=== PATIENT | female | born 1955 | race Two or more races ===

== ENCOUNTER 2022-12-16 10:09 | Outpatient (OUT) | payer OTHER, SELFPAY ==
[2022-12-16 12:13] LABS: Anion Gap 11.2; BUN Creatinine Ratio 15.5; Calcium 8.9 mg/dL (8.5-10.1); Carbon Dioxide 29.7 mmol/L (21.0-32.0); Chloride 106 mmol/L (98-107); Estimated GFR (African America >60 (>=60); Estimated GFR (Non-African Ame >60 (>=60); Glucose 104 mg/dL (74-106); Potassium 3.9 mmol/L (3.5-5.1); Sodium 143 mmol/L (136-145)
== END 2022-12-16 10:10 | disposition home or self-care (01) ==
LOC: LAB 12-20 12:40
PROVIDERS: PCP Nurse Practitioner; Visit Provider Nurse Practitioner
DX: M81.0 Age-related osteoporosis without current pathological fracture (principal)
CPT/HCPCS: 36415; 80048

== ENCOUNTER 2022-12-21 07:34 | Outpatient (OUT) | payer OTHER, SELFPAY ==
[2022-12-21] MEDS: ZOLEDRONIC ACID/MANNITOL-WATER 5 MG/100 ML BOTTLE 300 MG IV (10:03)
== END 2022-12-21 07:35 | disposition home or self-care (01) ==
LOC: INF 07:34
PROVIDERS: PCP Nurse Practitioner; Visit Provider Nurse Practitioner
DX: M81.0 Age-related osteoporosis without current pathological fracture (principal)
CPT/HCPCS: 96365; J3489

== ENCOUNTER 2023-12-13 07:24 | Outpatient (RCR) | payer OTHER, SELFPAY ==
[2023-12-13 09:35] VITALS: BP 144/79; PULSE 75; TEMP 36.8; O2SAT 95
[2023-12-13] MEDS: ZOLEDRONIC ACID/MANNITOL-WATER 5 MG/100 ML BOTTLE 400 MG IV (09:42)
[2023-12-13 09:58] LABS: Anion Gap 11.7; Calcium 8.4 mg/dL (8.5-10.1); Carbon Dioxide 27.3 mmol/L (21.0-32.0); Chloride 108 mmol/L (98-107); Estimated GFR (African America >60 (>=60); Estimated GFR (Non-African Ame >60 (>=60); Glucose 97 mg/dL (74-106); Sodium 143 mmol/L (136-145)
--- NOTE | 2023-12-13 10:04 | PC.NURSE ---
0935: Pt. to [facility] amb. for Reclast infusion. Seated in recliner. VSS. IV initiated to left forearm, see documentation. Pt. tolerated well. IV Reclast initiated at this time. 1001: Reclast completed at this time without s&s of adverse reaction. IV d/c'd, pressure to site. D/c'd amb. to home.
== END 2023-12-24 23:59 | disposition home or self-care (01) ==
LOC: LAB 07:24
PROVIDERS: PCP Nurse Practitioner; Visit Provider Nurse Practitioner
DX: M81.0 Age-related osteoporosis without current pathological fracture (principal)
CPT/HCPCS: 36415; 80048; 96365; J3489

== ENCOUNTER 2024-04-18 11:36 | Outpatient (OUT) | payer OTHER, SELFPAY ==
--- OUTSIDE RECORDS SUMMARY | 2024-04-18 11:41 | XMS_ITS | CCD ---
Author Organization [facility] Care Team Providers Care Tear Down Man Name Role Phone Faustina Willis Unavailable SHAIKH Noa ONEAL Admitting Unavailable SHAIKH Noa ONEAL Attending Unavailable LOLY, DR LUX Primary Care Unavailable LOLY, DR LUX Admitting Unavailable HOUSE, DR LUX Attending Unavailable HOUSE, DR LUX Primary Care Unavailable HOUSE, DR LUX Consulting Unavailable AICHHOLZ, FURNACE OPERATOR AND TENDER MELONY Admitting Unavailable AICHHOLZ, FURNACE OPERATOR AND TENDER MELONY Attending Unavailable AICHHOLUziel, FURNACE OPERATOR AND TENDER MELONY Primary Care Unavailable AICHHOLZ, FURNACE OPERATOR AND TENDER MELONY Consulting Unavailable Janay Elizalde Unavailable DAKSHA Elizalde Attending Provider MD Hill Foreman Attending Provider Hill Foreman Attending Unavailable Hill Foreman Admitting Unavailable Janay Elizalde Attending Unavailable Janay Elizalde Admitting Unavailable Aichholuziel CROOKS-Melony WARE Primary Care Provider CHRISTIANO QUINTANA Attending Unavailable AICHHOLZ, MELONY J Referring Unavailable AICHHOLZ, MELONY J Primary Care Unavailable CHRISTIANO QUINTANA Attending Unavailable CHRISTIANO QUINTANA Referring Unavailable AICHHOLZ, MELONY J Primary Care Unavailable JUVENTINOHOCHRISTIANO ACEVES Referring Unavailable AICHHOLZ, MELONY J Primary Care Unavailable JUVENTINOHOYOLA, CHRISTIANO N Referring Unavailable AICHHOLZ, MELONY J Primary Care Unavailable VERHOFFCHRISTAINO N Attending Unavailable AICHHOLZ, MELONY J Referring Unavailable AICHHOLZ, MELONY J Primary Care Unavailable AICHHOLZ, MELONY J Referring Unavailable AICHHOLZ, MELONY J Primary Care Unavailable AICHHOLZ, MELONY J Referring Unavailable AICHHOLZ, MELONY J Primary Care Unavailable CHRISTIANO QUINTANA Attending Unavailable JOENoaALISSA, MELONY J Referring Unavailable KATIA, MELONY J Primary Care Unavailable CHRISTIANO QUINTANA Attending Unavailable CHRISTIANO QUINTANA Referring Unavailable AICNoaALISSA, MELONY J Primary Care Unavailable AICNoaHOLUziel, MELONY J Referring Unavailable AICNoaHOLUziel, MELONY J Primary Care Unavailable AICHHOLZ, MELONY Attending Unavailable AICHHOLZ, MELONY Attending Unavailable AICHHOLZ, MELONY Attending Unavailable AICHHOLZ, MELONY Attending Unavailable AICHHOLZ, MELONY Attending Unavailable SABRA VALADEZ Attending Unavailable Luly HUYNH, Jovanny Unavailable Jovanny Mauricio MD Primary Care Provider [phone] Katia RETAIL SHIFT MANAGER, Melony Unavailable Allergies Allergy Classification Reported Allergen(s) Allergy Type Date of Onset Reaction(s) Facility (2 sources) Penicillin G Benzathine Drug allergy rash [place] [employer] Other (4 sources) Penicillins; Translations: [PENICILLINS] Propensity to adverse reactions to drug 7 [facility] (4 sources) Penicillins Propensity to adverse reactions 4 [facility] Medications Current Medications Medication Drug Class(es) Dates Sig (Normalized) Sig (Original) acetaminophen 325 mg oral tablet (5 sources) take 2 tablets by mouth every six hours as needed for pain acetaminophen (TYLENOL) 325 mg tablet Take 2 tablets (650 mg total) by mouth every 6 (six) hours as needed for pain. 0 Active take 2 tablets by mouth every fo ur hours Tylenol 325 MG 2 tablet as needed Orally every 4 hrs Active take 1 tablet by mouth every fou r hours Tylenol 325 MG 1 tablet as needed Orally every 4 hrs Active calcium carbonate 1250 mg / cholecalciferol 125 unt oral tablet (7 sources) Vitamin D take 1 tablet by mouth in the morning Calcium Carb-Cholecalciferol 500-10 MG-MCG tablet Take 1 tablet by mouth in the morning and 1 tablet in the evening. Active take 1 tablet by mouth in the mo rning calcium carbonate-vitamin D3 500 mg-10 mcg (400 unit) tablet Take 1 tablet by mouth in the morning and 1 tablet before bedtime. 0 Active cetirizine hydrochloride 10 mg oral tablet (4 sources) Histamine-1 Receptor Antagonist Start: 02-29-2024 take 1 tablet by mouth once daily cetirizine (ZyrTEC) 10 MG tablet Indications: Contact dermatitis due to plant Take 1 tablet (10 mg) by mouth Daily for 15 days 15 tablet 02/29/2024 Active diclofenac sodium 0.01 mg/mg topical gel (2 sources) Nonsteroidal Anti-inflammator y Drug Voltaren 1 % Externally Active hydroCHLOROthiazide (1 source) Thiazide Diuretic hydroCHLOROthiazide Active meloxicam 15 mg oral tablet (5 sources) Nonsteroidal Anti-inflammator y Drug take 1 tablet by mouth once daily meloxicam (Mobic) 15 MG tablet Take 15 mg by mouth Daily Active take 1 tablet by ida th every twenty-four hours Meloxicam 7.5 MG 1 tablet Orally Once a day Not-Taking NON FORMULARY (3 sources) take 1 dose by mouth once daily in the morning NON FORMULARY Take 1 each by mouth in the morning. Med Name: Cartigen 500 mg daily . 0 Active [place] 3-6-9 Complex - (1 source) [place] 3-6-9 Comp eileen - as directed Orally Active omeprazole 40 mg delayed release oral capsule (7 sources) Proton Pump Inhibitor Start: 11-28-19 24 take 1 capsule by mouth before mealtime omeprazole (PriLOSEC) [address] capsule Indications: Gastroesophageal reflux disease without esophagitis Take 1 capsule (40 mg) by mouth in the morning. Take before meals. Do not crush or chew.. 90 capsule 1 11/28/2023 Active Start: 05-06-2021 take 1 capsule by mo ut once daily omeprazole (PriLOSEC) 40 mg capsule Take 1 capsule (40 mg total) by mouth daily. 30 capsule 1 05/06/2021 Active pregabalin 50 mg oral capsule (2 sources) Start: 08-30-2023 take 1 capsule by mouth in the morning, then take 1 capsule by mouth at bedtime pregabalin (LYRICA) 50 mg capsule Indications: Lumbar spondylosis , Spinal stenosis of lumbar region with neurogenic claudication Take 1 capsule (50 mg total) by mouth in the morning and 1 capsule (50 mg total) before bedtime. 60 capsule 1 08/30/2023 Active tiZANidine 4 mg oral tablet (3 sources) Central alpha-2 Adrenergic Agonist Start: 06-28-2023 take 1 tablet by mouth once daily as needed for muscle spasms ZANAFLEX 4 mg tablet Take 1 tablet (4 mg total) by mouth daily as needed for muscle spasms. 0 06/28/2023 Active 100 ml zoledronic acid 0.05 mg/ml injection (4 sources) Bisphosphonate zoledronic acid (Reclast) 5 MG/100ML solution Infuse 5 mg into a venous catheter 1 (one) time Once a year Active Completed/Discontinued Medications Medication Drug Class(es) Dates Sig (Normalized) Sig (Original) gabapentin 300 mg oral capsule (1 source) Anti-epileptic Agent Start: 05-10-2018 take 1 capsule by mouth every eight hours Gabapentin 300 MG 1 capsule Orally Three times a day for 30 day(s) Apr, Not-Taking methylPREDNISolone 4 mg oral tablet (1 source) Corticosteroid Start: 05-01-2018 Medrol 4 MG as directed Orally Apr, Not-Taking traMADol hydrochloride 50 mg oral tablet (2 sources) Opioid Agonist Start: 05-10-2018 take 1 tablet by mouth twice daily as needed traMADol HCl 50 MG 1 tablet as needed Orally up to two times daily as needed for 30 days Apr, Not-Taking Start: 05-01-2018 take 1 tablet by ida th every six hours traMADol HCl 50 MG 1 tablet as needed Orally every 6 hrs Apr, Not-Taking Problems Active Problems Problem Classification Problem Date Documented Date Episodic/Chronic Allergic reactions (4 sources) Contact dermatitis due to plants; Translations: [Unspecified contact dermatitis due to plants, except food] Onset: 02-29-2024 02-29-2024 Episodic Cataract (10 sources) Nuclear sclerotic cataract; Translations: [Age-related nuclear cataract, left eye] Onset: 06-11-2017 Resolved: 07-09-2017 07-09-2017 Chronic Deficiency and other anemia (1 source) Iron deficiency anemia, unspecified; Translations: [Iron deficiency anemia, unspecified] Onset: 10-11-2023 Episodic Disorders of lipid metabolism (6 sources) Hyperlipidemia, unspecified; Translations: [Mixed hyperlipidemia] Onset: 09-28-2023 09-28-2023 Chronic Esophageal disorders (5 sources) Gastro-esophageal reflux disease without esophagitis; Translations: [Gastroesophageal reflux disease without esophagitis] Onset: 09-28-2023 09-28-2023 Chronic Essential hypertension (5 sources) Essential (primary) hypertension; Translations: [Benign essential hypertension] Onset: 09-28-2023 09-28-2023 Chronic Headache; including migraine (1 source) Headache; including migraine; Translations: [HEADACHE UNSPECIFIED] Onset: 03-27-2021 Osteoarthritis (5 sources) Primary osteoarthritis, right hand; Translations: [Osteoarthritis of joint of right hand] Onset: 10-04-2023 11-28-2023 Chronic Osteoporosis (5 sources) Age-related osteoporosis without current pathological fracture; Translations: [Postmenopausal osteoporosis] Onset: 09-28-2023 11-28-2023 Chronic Other aftercare (4 sources) Other detention (current) drug therapy; Translations: [OTH VISITOR SERVICES ASSOCIATE CURRENT DRUG THERAPY] Onset: 01-14-2022 Episodic Other aftercare (2 sources) H/O: high risk medication; Translations: [Other detention (current) drug therapy] 04-04-2024 Episodic Other connective tissue disease (1 source) Hand pain Onset: 10-04-2023 Episodic Other connective tissue disease (1 source) Pain in right finger(s); Translations: [Pain in right finger(s)] Onset: 08-30-2023 Episodic Other injuries and conditions due to external causes (1 source) Injury, unspecified, initial encounter Episodic Other nervous system disorders (2 sources) Chronic pain; Translations: [Other chronic pain] Chronic Other nervous system disorders (4 sources) Difficulty walking; Translations: [Difficulty in walking, not elsewhere classified] Onset: 09-28-2023 09-28-2023 Chronic Other non-traumatic joint disorders (4 sources) Derangement of right shoulder joint; Translations: [Other specific joint derangements of right shoulder, not elsewhere classified] Onset: 09-28-2023 09-28-2023 Chronic Other nutritional; endocrine; and metabolic disorders (4 sources) Obese class I; Translations: [Obesity (BMI 30.0-34.9)] Onset: 06-28-2023 06-28-2023 Chronic Peripheral and visceral atherosclerosis (4 sources) Atherosclerosis of aorta; Translations: [Atherosclerosis of aorta] Onset: 02-29-2024 02-29-2024 Chronic Residual codes; unclassified (2 sources) Amnesia; Translations: [Other amnesia] 04-04-2024 Episodic Residual codes; unclassified (4 sources) Memory impairment; Translations: [Other amnesia] Onset: 02-29-2024 02-29-2024 Episodic Spondylosis; intervertebral disc disorders; other back problems (20 sources) Lumbosacral spondylosis without myelopathy; Translations: [Spondylosis without myelopathy or radiculopathy, lumbosacral region] Onset: 07-19-2023 07-19-2023 Chronic Spondylosis; intervertebral disc disorders; other back problems (20 sources) Peripheral neuritis; Translations: [Radiculopathy, lumbar region] Onset: 06-28-2023 07-19-2023 Episodic Superficial injury; contusion (1 source) Contusion of left knee, initial encounter Episodic Unclassified (1 source) Pain in right hand; Translations: [Pain in right hand] Onset: 12-13-2022 Unclassified (1 source) Contusion of left knee, initial encounter; Translations: [Contusion of left knee, initial encounter] Onset: 10-23-2022 Unclassified (1 source) Low back pain, unspecified; Translations: [Low back pain, unspecified] Onset: 06-29-2023 Past or Other Problems Problem Classification Problem Date Documented Da te Episodic/Chronic Deficiency and other anemia (4 sources) Iron deficiency anemia; Translations: [Iron deficiency anemia, unspecified] Onset: 09-28-2023 09-28-2023 Episodic Gastritis and duodenitis (4 sources) Gastritis, unspecified, without bleeding; Translations: [GASTRITIS UNS WITHOUT BLEEDING] Onset: 03-11-2021 Episodic Headache; including migraine (4 sources) Headache disorder; Translations: [Other headache syndrome] Onset: 06-28-2023 06-28-2023 Episodic Malaise and fatigue (1 source) Other fatigue Onset: 12-09-2021 Resolved: 12-09-2021 Episodic Mood disorders (4 sources) Mood disorders Onset: 11-28-2023 11-28-2023 Mycoses (4 sources) Candidal intertrigo; Translations: [Candidiasis of skin and nail] Onset: 09-28-2023 09-28-2023 Episodic Nausea and vomiting (1 source) Nausea; Translations: [NAUSEA] Onset: 03-27-2021 Episodic Nutritional deficiencies (5 sources) Deficiency of other specified B group vitamins; Translations: [Vitamin B12 deficiency (non anemic)] Onset: 09-28-2023 09-28-2023 Episodic Other circulatory disease (4 sources) Elevated blood pressure; Translations: [Elevated blood-pressure reading, without diagnosis of hypertension] Onset: 06-28-2023 Resolved: 09-28-2023 09-28-2023 Episodic Other connective tissue disease (8 sources) Pain in finger; Translations: [Pain in right finger(s)] Onset: 08-30-2023 08-30-2023 Episodic Other connective tissue disease (4 sources) Nontraumatic complete rupture of rotator cuff of right shoulder; Translations: [Complete rotator cuff tear or rupture of right shoulder, not specified as traumatic] Onset: 09-28-2023 09-28-2023 Episodic Other ear and sense organ disorders (4 sources) Otalgia, right ear; Translations: [Otalgia, unspecified] Onset: 09-28-2023 09-28-2023 Episodic Other screening for suspected conditions (not mental disorders or infectious disease) (5 sources) Encounter for screening mammogram for malignant neoplasm of breast; Translations: [Patient encounter status] Onset: 09-28-2023 09-28-2023 Episodic Residual codes; unclassified (4 sources) Edema of lower extremity; Translations: [Localized edema] Onset: 09-28-2023 09-28-2023 Episodic Residual codes; unclassified (4 sources) Family history of breast cancer; Translations: [Family history of malignant neoplasm of breast] Onset: 11-28-2023 11-28-2023 Episodic Results Test Name Value Interpretation Reference Range Facility MAMM SCREENING BILATERAL W C biomedical engineering director 10-16-2023 MAMM SCREENING BILATERAL W CAD MAMM SCREENING BILATERAL W CAD EXAM: MAMM SCREENING BILATERAL W CAD, 10/16/2023 11:13 AM CLINICAL INDICATIONS: Screening, Visit for screening mammogram COMPARISON: 10/12/2022 and priors TECHNIQUE: Bilateral digital tomosynthesis MLO and CC views of the breasts were obtained, with creation of synthetic 2D views. Computer aided detection was utilized. FINDINGS: The breasts are heterogeneously dense, which may obscure small masses. There are no suspicious masses, calcifications, or areas of architectural distortions. IMPRESSION: No mammographic evidence of malignancy. BI-RADS: BI-RADS 1 - Negative Recommendation: Routine screening mammogram in 1 year. Finalized by Catracho Mccollum MD on 10/16/2023 12:38 PM 1 c MAMM 1 YR Normal [facility] COMPREHENSIVE METABOLIC PANE Jeffry 10-11-2023 Albumin [Mass/Vol] 4.1 g/dL Normal 3.2-5.3 [facility] Comment on above: Performed By: #### 2 498-4, CMP, 2276-4, 54100-2, 2132-9, 95242-0 #### [facility] ([id number]) [address], [address] [place] [address] ALP [Catalytic activity/Vol] 53 U/L Normal 39-130 [facility] Comment on above: Performed By: #### 2 498-4, CMP, 2276-4, 55484-4, 2-9, 56633-8 #### [facility] ([id number]) [address], [address] [place] [address] ALT [Catalytic activity/Vol] 14 U/L Normal 0-31 [facility] Comment on above: Performed By: #### 2 498-4, CMP, 2276-4, 82809-7, 2132-9, 58794-4 #### [facility] ([id number]) [address], [address] [place] [address] Anion gap [Moles/Vol] 5 mmol/L Normal 5-15 [facility] Comment on above: Performed By: #### 2 498-4, CMP, 2276-4, 27233-8, 2132-9, 75939-7 #### [facility] ([id number]) [address], [address] [place] [address] AST [Catalytic activity/Vol] 16 U/L Normal 0-41 [facility] Comment on above: Performed By: #### 2 498-4, CMP, 2276-4, 75566-9, 2132-9, 06339-9 #### [facility] ([id number]) [address], [address] [place] [address] Bilirubin [Mass/Vol] 0.4 mg/dL Normal 0.3-1.2 [facility] Comment on above: Performed By: #### 2 498-4, CMP, 2276-4, 04171-2, 9, 44799-8 #### [facility] ([id number]) [address], [address] [place] [address] Calcium [Mass/Vol] 8.8 mg/dL Normal 8.5-10.5 [facility] Comment on above: Performed By: #### 2 498-4, CMP, 2276-4, 51664-6, 2132-02, 59932-1 #### [facility] ([id number]) [address], [address] [place] [address] Chloride [Moles/Vol] 108 mmol/L Normal 98-109 [facility] Comment on above: Performed By: #### 2 498-4, CMP, 2276-4, 15174-9, 2132-02, 67820-6 #### [facility] ([id number]) [address], [address] [place] [address] CO2 [Moles/Vol] 28 mmol/L Normal 22-32 [facility] Comment on above: Performed By: #### 2 498-4, CMP, 2276-4, 23344-4, 9, 58265-7 #### [facility] ([id number]) [address], [address] [place] [address] Creatinine [Mass/Vol] 0.54 mg/dL Normal 0.40-1.00 [facility] Comment on above: Result Comment: METH OD TRACEABLE TO IDMS STANDARD Performed By: #### 2 498-4, CMP, 2276-4, 16109-3, 2132-02, 68117-7 #### [facility] ([id number]) [address], [address] [place] [address] eGFR (CKD-EPI) NON-RACE DEPENDENT >90 Normal >59 [facility] Comment on above: Result Comment: Reported eGFR is based on the CKD-EPI 2020 equation that does not use a race coefficient. Performed By: #### 2 498-4, CMP, 2276-4, 46264-3, 2132-02, 22523-1 #### [facility] ([id number]) [address], [address] [place] [address] Glucose [Mass/Vol] 91 mg/dL Normal 65-99 [facility] Comment on above: Performed By: #### 2 498-4, CMP, 2276-4, 66930-6, 2132-02, 21625-7 #### [facility] ([id number]) [address], [address] [place] [address] Potassium [Moles/Vol] 3.8 mmol/L Normal 3.5-5.0 [facility] Comment on above: Performed By: #### 2 498-4, CMP, 2276-4, 88656-6, 2132-02, 58324-2 #### [facility] ([id number]) [address], [address] [place] [address] Protein [Mass/Vol] 6.9 g/dL Normal 6.0-8.0 [facility] Comment on above: Performed By: #### 2 498-4, CMP, 2276-4, 73245-5, 2132-02, 12284-8 #### [facility] ([id number]) [address], [address] [place] [address] Sodium [Moles/Vol] 141 mmol/L Normal 134-146 [facility] Comment on above: Performed By: #### 2 498-4, CMP, 2276-4, 06055-9, 2131-9, 04797-8 #### [facility] ([id number]) [address], [address] [place] [address] Urea nitrogen [Mass/Vol] 14 mg/dL Normal 5-27 [facility] Comment on above: Performed By: #### 2 498-4, CMP, 2276-4, 20802-9, 2131-9, 94615-0 #### [facility] ([id number]) [address], [address] [place] [address] FERRITINon 10-11-2023 Ferritin [Mass/Vol] 156 ng/mL Normal 11-307 [facility] Comment on above: Performed By: #### 2 498-4, CMP, 2276-4, 60739-6, 9, 01956-8 #### [facility] ([id number]) [address], [address] [place] [address] IRONon 10-11-2023 Iron [Mass/Vol] 114 ug/dL Normal 50-170 [facility] Comment on above: Performed By: #### 2 498-4, CMP, 2276-4, 33180-8, 2132-02, 51686-0 #### [facility] ([id number]) [address], [address] [place] [address] Lipid 1996 panelon Cholesterol [Mass/Vol] 206 mg/dL High 150-200 [facility] Comment on above: Performed By: #### 2 498-4, CMP, 2276-4, 18412-2, 9, 98583-8 #### [facility] ([id number]) [address], [address] [place] [address] Cholesterol in HDL [Mass/Vol] 57 mg/dL Normal >39 [facility] Comment on above: Result Comment: HDL <40 mg/dL - High Risk HDL > or = 40mg/dL- Desirable HDL >60 mg/dL - Negative Risk Performed By: #### 2 498-4, CMP, 2276-4, 24659-9, 2132-9, 06256-0 #### [facility] ([id number]) [address], [address] [place] [address] Cholesterol in LDL [Mass/Vol] 137 mg/dL High <130 [facility] Comment on above: Result Comment: LDL <100 mg/dL - Desirable LDL >160 mg/dL - High Risk Performed By: #### 2 498-4, CMP, 2276-4, 10419-3, 2132-9, 38196-5 #### [facility] ([id number]) [address], [address] [place] [address] Cholesterol in VLDL [Mass/Vol] 12 mg/dL Normal 0-30 [facility] Comment on above: Performed By: #### 2 498-4, CMP, 2276-4, 16721-5, 2132-9, 79324-1 #### [facility] ([id number]) [address], [address] [place] [address] CHOLESTEROL:HDL 3.6 Normal 1.0-5.0 [facility] Comment on above: Performed By: #### 2 498-4, CMP, 2276-4, 69128-9, 2132-9, 17694-8 #### [facility] ([id number]) [address], [address] [place] [address] Triglyceride [Mass/Vol] 61 mg/dL Normal 27-150 [facility] Comment on above: Performed By: #### 2 498-4, CMP, 2276-4, 57771-4, 2132-9, 35776-2 #### [facility] ([id number]) [address] [facility] [address] [place] [address] MICROALBUMIN - ALBUMIN:CREAT ININE URINE RATIOon 10-11-2023 ALB/CREAT RATIO 10.2 mg/g creat Normal 0.0-30.0 [facility] Comment on above: Performed By: #### M ALBU #### [facility] ([id number]) [address] [address] Albumin DL <= 20 mg/L (U) [Mass/Vol] 1.5 mg/dL Normal 0.0-1.9 [facility] Comment on above: Performed By: #### M ALBU #### [facility] ([id number]) [address] [place] [address] URINE CREAT 147.05 mg/dL Normal [facility] Comment on above: Performed By: #### M ALBU #### [facility] ([id number]) [address] [place] [address] URINALYSISon 10-11-2023 Bilirubin Ql (U) Negative Normal NEG [facility] Comment on above: Performed By: #### M ALBU #### [facility] ([id number]) [address] [place] [address] BLOOD/HGB Small Abnormal NEG [facility] Comment on above: Performed By: #### M ALBU #### [facility] ([id number]) [address] [place] [address] Color (U) YELLOW Normal YELLOW [facility] Comment on above: Performed By: #### M ALBU #### [facility] ([id number]) [address] [place] [address] [address] [place] [address] Glucose Ql (U) Negative Normal NEG [facility] Comment on above: Performed By: #### M ALBU #### [facility] ([id number]) [address] [place] [address], [address] [place] [address] Ketones Ql (U) Negative Normal NEG [facility] Comment on above: Performed By: #### M ALBU #### [facility] ([id number]) [address] [place] [address], [address] [place] [address] Leukocyte esterase Test strip Ql (U) Negative Normal NEG [facility] Comment on above: Performed By: #### M ALBU #### [facility] ([id number]) [address] [place] [address], [address] [place] [address] MUCOUS PRESENT Abnormal NONE [facility] Comment on above: Performed By: #### M ALBU #### [facility] ([id number]) [address] [place] [address], [address] [place] [address] Nitrite Ql (U) Negative Normal NEG [facility] Comment on above: Performed By: #### M ALBU #### [facility] ([id number]) [address] [place] [address], [address] [place] [address] pH (U) 6.0 [pH] Normal 5.0-8.5 [facility] Comment on above: Performed By: #### M ALBU #### [facility] ([id number]) [address] [place] [address], [address] [place] [address] Protein Ql (U) Negative Normal NEG [facility] Comment on above: Performed By: #### M ALBU #### [facility] ([id number]) [address] [place] [address], [address] [place] [address] R.B.CELLS 0 /hpf Normal 0-5 [facility] Comment on above: Performed By: #### M ALBU #### [facility] ([id number]) [address] [place] [address] [address] [place] [address] Specific gravity (U) [Rel density] 1.021 Normal 1.003-1.035 [facility] Comment on above: Performed By: #### Karyn BATES #### [facility] ([id number]) [address], [address] [place] [address] SQUAMOUS EPITHELIUM 1 /hpf Normal 0-5 [facility] Comment on above: Performed By: #### Karyn BATES #### [facility] ([id number]) [address], [address] [place] [address] TURBIDITY CLEAR Normal CLEAR [facility] Comment on above: Performed By: #### Karyn BATES #### [facility] ([id number]) [address], [address] [place] [address] Urobilinogen (U) [Mass/Vol] mg/dL Normal <1.1 [facility] Comment on above: Performed By: #### Karyn BATES #### [facility] ([id number]) [address], [address] [place] [address] W.B.CELLS 1 /hpf Normal 0-5 [facility] Comment on above: Performed By: #### Karyn BATES #### [facility] ([id number]) [address], [address] [place] [address] VITAMIN B12on 10-11-2023 Cobalamin (Vitamin B12) [Mass/Vol] 325 pg/mL Normal 180-914 [facility] Comment on above: Performed By: #### 2 498-4, CMP, 2276-4, 57224-8, 2132-9, 24504-5 #### [facility] ([id number]) [address], [address] [place] [address] Vitamin D+Metabolites [Mass/ Vol]on 10-11-2023 VITAMIN D 25 HYD TOT 23.6 ng/mL Low 30-100 [facility] Comment on above: Result Comment: Vitamin D status 25 [place] Vitamin D Deficiency <20 ng/mL Insufficiency 20-29 ng/mL Sufficiency 30-100 ng/mL Toxicity >100 ng/mL NOTE: A pediatric reference range has not been established by the air force pilot of this kit. The [place] [employer] recommends a Vitamin D level of = or >20ng/mL in infants and children. Performed By: #### 2 498-4, CMP, 2276-4, 92689-2, 2132-9, 31624-6 ####[facility] ([id number])2130 [facility], [address] [place], [place] [id number] XR HAND RT MIN 3 VWSon 08-30 XR HAND RT MIN 3 VWS XR HAND RT MIN 3 VWS RIGHT HAND 3 VIEW COMPARISON: 11/08/2022 HISTORY: Pain of right middle finger. PA, oblique, and lateral views of the right hand obtained. IMPRESSION: 1. Osteopenia. No acute fracture or dislocation. 2. No bone erosion or soft tissue calcification. 3. Degenerative changes of the interphalangeal joints most prominent involving the distal interphalangeal joints of the second, third, and fifth fingers. Finalized by Scott Chinchilla MD on 08/30/2023 11:44 PM [facility] XR Hand - right 3 Viewson RIGHT HAND 3 VIEW COMPARISON: 11/08/2022 HISTORY: Pain of right middle finger. PA, oblique, and lateral views of the right hand obtained. IMPRESSION: 1. Osteopenia. No acute fracture or dislocation. 2. No bone erosion or soft tissue calcification. 3. Degenerative changes of the interphalangeal joints most prominent involving the distal interphalangeal joints of the second, third, and fifth fingers. Finalized by Scott Chinchilla MD on 08/30/2023 11:44 PM [facility] Scott Chinchilla MD - 08/30/2023 RIGHT HAND 3 VIEW COMPARISON: 11/08/2022 HISTORY: Pain of right middle finger. PA, oblique, and lateral views of the right hand obtained. IMPRESSION: 1. Osteopenia. No acute fracture or dislocation. 2. No bone erosion or soft tissue calcification. 3. Degenerative changes of the interphalangeal joints most prominent involving the distal interphalangeal joints of the second, third, and fifth fingers. Finalized by Scott Chinchilla MD on 08/30/2023 11:44 PM [facility] Radiology Study observation (narrative) [facility] XR Hand - right 3 ViewsOrder ed By: Scott Chinchilla on 08-30-2023 [employer] Work Phone: MR LUMBAR SPINE WO CONTon MR LUMBAR SPINE WO CONT MR LUMBAR SPINE WO CONT History: Low back pain Exam/Technique: Multiple MRI images of the lumbar spine were obtained in the sagittal and axial planes. Comparison: 05/03/2018 Findings: Partial sacralization of the L5 vertebral body is again demonstrated. The numbering of the vertebral based on the number of nonrib-bearing vertebrae. At T12-L1, no osseous or disc abnormalities are identified. The neural foramen are patent bilaterally. At L1-2, broad-based disc bulging is seen effacing the anterior aspect of the thecal sac, similar to prior study. Bilateral facet arthropathy and ligament hypertrophy are seen. No spinal stenosis is demonstrated and the neural foramen are patent bilaterally. At L2-3, broad-based disc bulging, facet arthropathy, and ligament hypertrophy are producing a mild to moderate spinal stenosis, increased in severity since the previous examination. Disc material is also seen protruding into the right-sided neural foramen producing a right-sided neural foraminal narrowing. This is also new since the prior study. At L3-4, broad-based disc bulging effacing the anterior aspect of the underlying thecal sac. Bilateral facet arthropathy and ligament hypertrophy are also seen and these factors combine to produce a moderate spinal stenosis that has increased since the prior study. There is a bilateral neural foraminal narrowing, greater on the right. At L4-5, a slight anterolisthesis is again seen. Broad-based disc bulging, facet arthropathy, and ligament hypertrophy are identified. No significant spinal stenosis is seen. There is a bilateral neural foraminal narrowing. L5-S1, no osseous or disc abnormalities are demonstrated. No spinal stenosis is seen. IMPRESSION: * Spinal stenoses at L2-3 and L3-4 secondary to disc bulge, facet arthropathy, and ligament hypertrophy. These have increased in severity since the previous examination dated 05/03/2018. * Eccentric disc bulge to the right at L2-3 protruding into the right-sided neural foramen * Multilevel facet arthropathy. * Partial sacralization of the L5 vertebral body. The numbering of the vertebral bodies is based on the number of nonrib-bearing vertebrae as was documented on a CT abdomen pelvis dated 09/02/2016 and also correlated with the previous examination dated 05/03/2018. Finalized by Shay Simon MD on 08/17/2023 11:40 AM Normal [facility] XR SPINE LUMBAR 2 OR 3 VWSon 06-30-2023 XR SPINE LUMBAR 2 OR 3 VWS XR SPINE LUMBAR 2 OR 3 VWS HISTORY: A 68-year-old female with the history of the low back pain and pain radiating down in the right lower extremity. TECHNIQUE: Lumbar spine: 3 views COMPARISON: Comparison is made with the lumbar spine radiographs of 03/28/2012. FINDINGS: Vertebral heights are normal. There is no evidence of compression fracture, spondylolysis or spondylolisthesis. There are diffuse degenerative changes in the lower thoracic and lumbar spine. Pedicles are intact. Both sacroiliac joints are intact. There are degenerative changes in the both hip joints. There is no evidence of osteolytic or osteoblastic bony destructive pathology. There are aortic calcifications. There is evidence of prior cholecystectomy. 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 Facet arthropathy seen at L5-S1. * No evidence of compression fracture, spondylolisthesis or acute bony pathology. Finalized by Brennon Aviles MD on 06/30/2023 10:22 AM Normal [facility] DEN Antinuclear Antibodieson 12-13-2022 Antinuclear Abs, IFA Negative Normal . [facility] Comment on above: Result Comment: Nega tive <1:80 Borderline 1:80 Positive >1:80 ICAP nomenclature: AC-0 For more information about Hep-2 cell patterns use ANApatterns.org, the official website for the International Consensus on Antinuclear Antibody (DEN) Patterns (ICAP). Performed at: [facility] [address] [id number] Chief Scientific Officer: Gregg Moreno PhD, Phone: [phone] PERFORMED BY: [place] [address] PATHOLOGIST LABORER [employer] MIKHAIL IVERSON M.D. Performed By: #### C K, ESR, CRP #### [address] #### DEN #### [facility] , C reactive protein [Mass/vol ume] in Serum or PlasmaOrdered By: Hill Foreman on 12-13-2022 CRP [Mass/Vol] < 0.5 mg/dL 0.0-0.5 [facility] C-Reactive Proteinon 023 CRP [Mass/Vol] mg/L Normal 0.0-0.5 [facility] Comment on above: Result Comment: PERF ORMED BY: [place] [address] PATHOLOGIST [employer] MIKHAIL IVERSON M.D. Performed By: #### C K, ESR, CRP #### [place] [address] [place] #### DEN #### [facility] , Creatine Kinaseon 12-13-2022 CK [Catalytic activity/Vol] 71 U/L Normal 30-223 [facility] Comment on above: Result Comment: PERF ORMED BY: [place] [address] PATHOLOGIST [employer] MIKHAIL IVERSON M.D. Performed By: #### C K, ESR, CRP #### [place] [address] [place] #### DEN #### [facility] , Creatine kinase [Enzymatic a ctivity/volume] in Serum or PlasmaOrdered By: Hill Foreman on 12-13-2022 CK [Catalytic activity/Vol] 71 U/L 30-223 [facility] Erythrocyte Sedimentation Ra dmitry 12-13-2022 ESR (Bld) [Velocity] 16 mm/h Normal 0-29 [facility] Comment on above: Result Comment: PERF ORMED BY: [place] [address] PATHOLOGIST [employer] MIKHAIL IVERSON M.D. Performed By: #### C K, ESR, CRP #### [place] [address] [place] #### DEN #### [facility] , Erythrocyte sedimentation ra te by Photometric methodOrdered By: Hill Foreman on 12-13-2022 ESR Photometric method (Bld) [Velocity] 16 mm/hr 0-29 [facility] XR hand BI 2Von 12-13-2022 XR hand BI 2V [facility] [place] [address] [place] [address] XRay Report Signed Patient: Emily Aguirre MR#: [id number] : 1955 Acct:[id number] Age/Sex: 67 / F ADM Date: 12/13/22 Loc: ICXD Room: Type: [facility] Attending Dr: Hill Foreman MD Copies to: Hill Foreman MD Ordering Provider: Hill Foreman MD Date of Service: 12/13/22 XR/XR hand BI 2V: pain BILATERAL HAND - 2 views each REASON FOR EXAM: Bilateral hand pain. COMPARISON: None FINDINGS: Right hand: No focal soft tissue abnormality. No acute bony process is seen. Bones are grossly demineralized. Scattered mild degenerative changes without bony erosions. Left hand: No focal soft tissue abnormality. No acute bony process is seen. Bones are grossly demineralized. Scattered mild degenerative changes without bony erosions. XR/XR hand BI 2V IMPRESSION: MILD DEGENERATIVE CHANGES OF BOTH HANDS WITHOUT ACUTE BONY PROCESS. NO BONY EROSIONS. Impression dictated by: Sukhdeep Marquez Jr. DNydiaONydia12/13/2022 3:48 PM Dictation Location: RADIO--08 Transcribed By: [facility] 12/13/22 1548 Dictated By: Sukhdeep Marquez Jr, DO 12/13/22 1547 Signed By: 12/13/22 1548 [facility] XR knee LT 4V*on 10-23-2022 XR knee LT 4V* [facility] [place] [address] [place] [address] XRay Report Signed Patient: Emily Aguirre MR#: [id number] : 1955 Acct:[id number] Age/Sex: 67 / F ADM Date: 10/23/22 Loc: XDUCLY Room: Type: [facility] Attending Dr: Janay Elizalde [employer]OCIATE Copies to: Janay Elizalde APRN Ordering Provider: Janay Elizalde APRN Date of Service: 10/23/22 XR/XR knee LT 4V*: Injury 4 views left knee plain film COMPARISON: 05/01/2018 HISTORY: Fell injuring left knee ACUTE FINDINGS: None DEGENERATIVE CHANGE: Superior patellar enthesophyte. SOFT TISSUE FINDINGS: Unremarkable JOINT EFFUSION: None POSTOP CHANGES: None BONE MINERALIZATION: Adequate XR/XR knee LT 4V* IMPRESSION: No acute findings Impression dictated by: Cedric Saldana M.D.10/23/2022 12:55 PM Dictation Location: [facility]--03 Transcribed By: [facility] 10/23/22 1255 Dictated By: Cedric Saldana DO 10/23/22 1252 Signed By: 10/23/22 1255 [facility] XR knee LT 4V* [facility] [employer] Other XR knee LT 4V* [facility] [employer] Other XR knee LT 4V* [address] [facility] [employer] Other XR knee LT 4V* [place] [address] No rt [employer] Other XR knee LT 4V* XRay Report [employer] Other XR knee LT 4V* Signed [employer] Other XR knee LT 4V* Patient: Stone Aguirre MR#: [id number] [employer] Other XR knee LT 4V* : 1955 Acct:[id number] [employer] Other XR knee LT 4V* Age/Sex: 67 / F ADM Date: 10/23/22 [employer] Other XR knee LT 4V* Loc: XDUCLY Room: Type: [facility] [employer] Other XR knee LT 4V* Attending Dr: Janay Elizalde [facility] [employer] Other XR knee LT 4V* Copies to: Janay Elizalde [facility] [employer] Other XR knee LT 4V* Ordering Provider: Janay Elizalde APRN [employer] Other XR knee LT 4V* Date of Service: 10/23/22 [employer] Other XR knee LT 4V* XR/XR knee LT 4V*: Injury [employer] Other XR knee LT 4V* 4 views left knee plain film [employer] Other XR knee LT 4V* COMPARISON: 05/01/2018 [employer] Other XR knee LT 4V* HISTORY: Fell injuri ng left knee [employer] Other XR knee LT 4V* ACUTE FINDINGS: None [employer] Other XR knee LT 4V* DEGENERATIVE CHANGE: Superior patellar enthesophyte. [employer] Other XR knee LT 4V* SOFT TISSUE FINDINGS : Unremarkable [employer] Other XR knee LT 4V* JOINT EFFUSION: None [employer] Other XR knee LT 4V* POSTOP CHANGES: None [employer] Other XR knee LT 4V* BONE MINERALIZATION: Adequate [employer] Other XR knee LT 4V* XR/XR knee LT 4V* [employer] Other XR knee LT 4V* IMPRESSION: No acute findings [employer] Other XR knee LT 4V* Impression dictated by: Cedric Saldana M.D.10/23/2022 12:55 PM [employer] Other XR knee LT 4V* Dictation Location: [place] [address] [employer] Other XR knee LT 4V* Transcribed By: [facility] 10/23/22 1255 [employer] Other XR knee LT 4V* Dictated By: Cedric Saldana DO 10/23/22 1252 [employer] Other XR knee LT 4V* Signed By: [employer] Other XR knee LT 4V* 10/23/22 1255 [facility] Other PROF CHEM 8 (BAS METB)on Anion gap [Moles/Vol] 10.3 mmol/L Normal [facility] Comment on above: Performed By: #### B MP #### [facility] [address] [address] [address] Eric Rendon Calcium [Mass/Vol] 9.1 mg/dL Normal 8.5-10.1 [facility] Comment on above: Performed By: #### B MP #### [facility] [address] [address] [address] Eric Rendon Chloride [Moles/Vol] 108 mmol/L Critically high 98-107 [facility] Comment on above: Performed By: #### B MP #### [facility] [address] [address] [address] Eric Rendon CO2 [Moles/Vol] 27.0 mmol/L Normal 21.0-32.0 [facility] Comment on above: Performed By: #### B MP #### [facility] [address] [address] [address] Eric Rendon Creatinine [Mass/Vol] 0.61 mg/dL Normal 0.55-1.[address] [facility] Comment on above: Performed By: #### B MP #### [facility] [address] [address] [address] Eric Rendon EGFR-AF [place] >60 Normal >=60 [facility] Comment on above: Performed By: #### B MP #### [facility] [address] [place] [address] Dr. Eric Rendon EGFR-NON AF [place]ORE[place] >60 Normal >=60 [facility] Comment on above: Performed By: #### B MP #### [facility] [address] [place] [address] Dr. Eric Rendon Glucose [Mass/Vol] 95 mg/dL Normal 74-106 [facility] Comment on above: Performed By: #### B MP #### [facility] [address] [place] [address] Dr. Eric Rendon Potassium [Moles/Vol] 4.3 mmol/L Normal 3.5-5.1 [facility] Comment on above: Performed By: #### B MP #### [facility] [address] [address] [address] Eric Rendon Sodium [Moles/Vol] 141 mmol/L Normal 136-145 [facility] Comment on above: Performed By: #### B MP #### [facility] [address] [place] [address] Dr. Eric Rendon Urea nitrogen [Mass/Vol] 14.0 mg/dL Normal 7.0-18.0 [facility] Comment on above: Performed By: #### B MP #### [facility] [address] [place] [address] Dr. Eric Rendon Urea nitrogen/Creatinin e [Mass ratio] 23.0 mg/mg Normal [facility] Comment on above: Performed By: #### B MP #### [facility] [address] [place] [address] Dr. Eric Rendon COVID Quick Testingon 2021 Result Negative [employer] Other CBC AUTO DIFFon 03-11-2021 BASO # 0.1 103/ul Normal 0.0-0.1 [facility] Comment on above: Performed By: #### C BC #### [facility] [address] [place] [address] Dr. Eric Rendon Basophils/100 WBC (Bld) 0.9 % Normal 0.2-2.0 [facility] Comment on above: Performed By: #### C BC #### [facility] [address] [place] [address] Dr. Eric Rendon EO # 0.1 103/ul Normal 0.0-0.7 [facility] Comment on above: Performed By: #### C BC #### [facility] [address] [place] [address] Dr. Eric Rendon Eosinophils/100 WBC (Bld) 1.1 % Normal 0.9-7.0 [facility] Comment on above: Performed By: #### C BC #### [facility] [address] [place] [address] Dr. Eric Rendon Erythrocyte distribution width (RBC) [Ratio] 13.4 % Normal 11.0-15.0 [facility] Comment on above: Performed By: #### C BC #### [facility] [address] [place] [address] Dr. Eric Rendon Hematocrit (Bld) [Volume fraction] 36.5 % Normal 36.0-48.0 [facility] Comment on above: Performed By: #### C BC #### [facility] [address] [place] [address] Dr. Eric Rendon Hemoglobin (Bld) [Mass/Vol] 11.7 g/dL Critically low 12.0-16.0 [facility] Comment on above: Performed By: #### C BC #### [facility] [address] [place] [address] Dr. Eric Rendon IG # 0.04 10e3/ul Critically high 0.00-0.03 [facility] Comment on above: Performed By: #### C BC #### [facility] [address] [place] [address] Dr. Eric Rendon IG % 0.7 % Critically high 0.0-0.5 [facility] Comment on above: Performed By: #### C BC #### [facility] [address] [place] [address] Dr. Eric Rendon LYMPH # 2.0 103/ul Normal 1.2-3.8 [facility] Comment on above: Performed By: #### C BC #### [facility] [address] [place] [address] Dr. Eric Rendon Lymphocytes/100 WBC (Bld) 34.6 % Normal 20.5-60.0 [facility] Comment on above: Performed By: #### C BC #### [facility] [address] [place] [address] Dr. Eric Rendon MANUAL DIFF REQ NO Normal [facility] Comment on above: Performed By: #### C BC #### [facility] [address] [place] [address] Dr. Eric Rendon MCH (RBC) [Entitic mass] 30.2 pg Normal 26.7-34.0 [facility] Comment on above: Performed By: #### C BC #### [facility] [address] [place] [address] Dr. Eric Rendon MCHC (RBC) [Mass/Vol] 32.1 g/dL Normal 29.9-35.2 [facility] Comment on above: Performed By: #### C BC #### [facility] [address] [place] [address] Dr. Eric Rendon MCV (RBC) [Entitic vol] 94.3 fL Normal 81.0-99.0 [facility] Comment on above: Performed By: #### C BC #### [facility] [address] [place] [address] Dr. Eric Rendon MONO # 0.5 103/ul Normal 0.3-0.[address] [facility] Comment on above: Performed By: #### C BC #### [facility] [address] [address] [address] Eric Rendon Monocytes/100 WBC (Bld) 7.9 % Normal 1.7-12.[address] [facility] Comment on above: Performed By: #### C BC #### [facility] [address] [place] [address] Dr. Eric Rendon NEUT # 3.1 103/ul Normal 1.4-6.5 [facility] Comment on above: Performed By: #### C BC #### [facility] [address] [place] [address] Dr. Eric Rendon Neutrophils/100 WBC (Bld) 54.8 % Normal 43.0-75.[address] [facility] Comment on above: Performed By: #### C BC #### [facility] [address] [place] [address] Dr. Eric Rendon Platelet mean volume (Bld) [Entitic vol] 10.9 fL Normal 9.5-13.5 [facility] Comment on above: Performed By: #### C BC #### [facility] [address] [place] [address] Dr. Eric Rendon PLT 247 103/ul Normal 150-[address] [facility] Comment on above: Performed By: #### C BC #### [facility] [address] [place] [address] Dr. Eric Rendon RBC 3.87 106/ul Critically low 4.20-5.40 [facility] Comment on above: Performed By: #### C BC #### [facility] [address] [place] [address] Dr. Eric Rendon WBC 5.7 103/ul Normal 4.0-11.[address] [facility] Comment on above: Performed By: #### C BC #### [facility] [address] [place] [address] Dr. Eric Rendon PROF 14(COMP METB)on 021 Albumin [Mass/Vol] 3.5 g/dL Normal 3.5-5.0 [facility] Comment on above: Performed By: #### T 4, TSH, CMP #### [facility] [address] [address] [address] Eric Rendon Albumin/Globulin [Mass ratio] 1.1 {ratio} Normal [facility] Comment on above: Performed By: #### T 4, TSH, CMP #### [facility] [address] [address] [address] Eric Rendon ALP [Catalytic activity/Vol] 55 U/L Normal 38-126 [facility] Comment on above: Performed By: #### T 4, TSH, CMP #### [facility] [address] [address] [address] Eric Rendon ALT [Catalytic activity/Vol] 27 U/L Normal 9-52 [facility] Comment on above: Performed By: #### T 4, TSH, CMP #### [facility] [address] [address] [address] Eric Rendon Anion gap [Moles/Vol] 9.1 mmol/L Normal [facility] Comment on above: Performed By: #### T 4, TSH, CMP #### [facility] [address] [address] [address] Eric Rendon AST [Catalytic activity/Vol] 20 U/L Normal 14-[address] [facility] Comment on above: Performed By: #### T 4, TSH, CMP #### [facility] Laboratory [address] [address] [address] Eric Rendon Bilirubin [Mass/Vol] 0.2 mg/dL Normal 0.2-1.[address] [facility] Comment on above: Performed By: #### T 4, TSH, CMP #### [facility] Laboratory [address] [address] [address] Eric Rendon Calcium [Mass/Vol] 9.1 mg/dL Normal 8.4-10.2 [facility] Comment on above: Performed By: #### T 4, TSH, CMP #### [facility] Laboratory [address] [address] [address] Eric Rendon Chloride [Moles/Vol] 105 mmol/L Normal 98-107 [facility] Comment on above: Performed By: #### T 4, TSH, CMP #### [facility] Laboratory [address] [address] [address] Eric Rendon CO2 [Moles/Vol] 30.9 mmol/L Critically high 22.0-30.0 [facility] Comment on above: Performed By: #### T 4, TSH, CMP #### [facility] Laboratory [address] [place] [address] Dr. Eric Rendon Creatinine [Mass/Vol] 0.68 mg/dL Normal 0.52-1.04 [facility] Comment on above: Performed By: #### T 4, TSH, CMP #### [facility] Laboratory [address] [place] [address] Dr. Eric Rendon EGFR-AF [place]TH [place]OREAN >60 Normal >=60 [facility] Comment on above: Performed By: #### T 4, TSH, CMP #### [facility] Laboratory [address] [place] [address] Dr. Eric Rendon EGFR-NON AF [place]TH KOREAN >60 Normal >=60 [facility] Comment on above: Performed By: #### T 4, TSH, CMP #### [facility] Laboratory [address] [place] [address] Dr. Eric Rendon Globulin (S) [Mass/Vol] 3.3 g/dL Normal [facility] Comment on above: Performed By: #### T 4, TSH, CMP #### [facility] Laboratory [address] [place] [address] Dr. Eric Rendon Glucose [Mass/Vol] 101 mg/dL Normal 74-106 [facility] Comment on above: Performed By: #### T 4, TSH, CMP #### [facility] Laboratory [address] [place] [address] Dr. Eric Rendon Potassium [Moles/Vol] 4.0 mmol/L Normal 3.4-5.0 [facility] Comment on above: Performed By: #### T 4, TSH, CMP #### [facility] Laboratory [address] [place] [address] Dr. Eric Rendon Protein [Mass/Vol] 6.8 g/dL Normal 6.1-8.2 [facility] Comment on above: Performed By: #### T 4, TSH, CMP #### [facility] Laboratory [address] [place] [address] Dr. Eric Rendon Sodium [Moles/Vol] 141 mmol/L Normal 137-145 [facility] Comment on above: Performed By: #### T 4, TSH, CMP #### [facility] Laboratory [address] [place] [address] Dr. Eric Rendon Urea nitrogen [Mass/Vol] 13.0 mg/dL Normal 7.0-17.0 [facility] Comment on above: Performed By: #### T 4, TSH, CMP #### [facility] Laboratory [address] [place] [address] Dr. Eric Rendon Urea nitrogen/Creatinin e [Mass ratio] 19.1 mg/mg Normal [facility] Comment on above: Performed By: #### T 4, TSH, CMP #### [facility] Laboratory [address] [place] [address] Dr. Eric Rendon T4on 03-11-2021 T4 [Mass/Vol] 7.70 ug/dL Normal 5.53-11.00 [facility] Comment on above: Performed By: #### T 4, TSH, CMP #### [facility] Laboratory [address] [place] [address] Dr. Eric Rendon TSHon 03-11-2021 TSH 2.392 uIU/mL Normal 0.470-4.680 [facility] Comment on above: Performed By: #### T 4, TSH, CMP #### [facility] Laboratory [address] [place] [address] Dr. Eric Rendon TSH RANGE SEE BELOW Normal [facility] Comment on above: Result Comment: <0.3 4 UIU/ml HYPERTHYROID 0.34-5.60 UIU/ml EUTHYROID >5.60 UIU/ml HYPOTHYROID Performed By: #### T 4, TSH, CMP #### [facility] Laboratory [address] [address] [address] Eric Rendon Coding Summary.on 04-27-2020 Coding Summary. CODING DATE: 04/27/2020 [facility] STATUS: Home (Routine DC) PAYOR: Self Pay ADMIT DX: REASON FOR VISIT DX: Z20.828 Contact with and (suspected) exposure to other viral communicable diseases FINAL DX: PRINCIPAL: Z20.828 Contact with and (suspected) exposure to other viral communicable diseases SECONDARY: PYMT PROC APC STAT DESCRIPTION DOCTOR NAME DATE NOTE: The code number assigned matches the documented diagnosis and / or procedure in the patient's chart. However, the narrative phrase printed from the coding software may appear abbreviated, or result in slightly different terminology. Coded By: Anayeli Alexis CphT Date Saved: 04/27/2020 09:35 am Normal [facility] SARS-CoV-2, NAAon 04-18-2020 SARS CORONAVIRUS 2 RNA:PRTHR:PT:RESPI RATORY:ORD:PROBE.A MP.TAR Not Detected Not Detected [facility] Comment on above: Result Comment: This nucleic acid amplification test was developed and its performance characteristics determined by [employer]. Nucleic acid amplification tests include PCR and TMA. This test has not been FDA cleared or approved. This test has been authorized by FDA under an Emergency Use Authorization (EUA). This test is only authorized for the duration of time the declaration that circumstances exist justifying the authorization of the emergency use of in vitro diagnostic tests for detection of SARS-CoV-2 virus and/or diagnosis of COVID-19 infection under section 564(b)(1) of the Act, 21 U.S.C. 360bbb-3(b) (1), unless the authorization is terminated or revoked sooner. When diagnostic testing is negative, the possibility of a false negative result should be considered in the context of a patient's recent exposures and the presence of clinical signs and symptoms consistent with COVID-19. An individual without symptoms of COVID-19 and who is not shedding SARS-CoV-2 virus would expect to have a negative (not detected) result in this assay. Performed at: [facility] [address] [facility] [place], [place] [id number] [facility] Gregorio Lizama Performed By: #### S ARS-CoV-2, BRITTANY #### [facility] Laboratory [address] [place] [address] Physician Orderon 04-15-2020 Physician Order [id number] 0CD:127 Normal [facility] Vital Signs Date Time Vital Sign Value Performing Clinician Faci lity 04-04-2024 11:42-0400 Body mass index (BMI) [Ratio] 33.14 kg/m2 [employer] DO Work Phone: [facility] 04-04-2024 11:42-0400 Body weight 82.19 kg Meeboopher Rory DO Work Phone: [facility] 04-04-2024 11:42-0400 Diastolic blood pressure 86 mm[Hg] [employer] Rory DO Work Phone: [facility] 04-04-2024 11:42-0400 Heart rate 84 /min [employer] Rory DO Work Phone: [facility] 04-04-2024 11:42-0400 SaO2% (BldA) [Mass fraction] 96 % Meeboopher Rory DO Work Phone: [facility] 04-04-2024 11:42-0400 Systolic blood pressure 150 mm[Hg] Meeboopher Rory DO Work Phone: [facility] 08-30-2023 09:10-0500 Diastolic blood pressure 88 mm[Hg] Christiano Verhoff PA-C Work Phone: [facility] [employer] [facility] 08-30-2023 09:10-0500 Heart rate 85 /min Christiano Verhoff PA-C Work Phone: [facility] 08-30-2023 09:10-0500 Respiratory rate 18 /min Christiano Verhoff PA-C Work Phone: [facility] 08-30-2023 09:10-0500 SaO2% (BldA) [Mass fraction] 96 % Christiano Verhoff PA-C Work Phone: [facility] [employer] [facility] 08-30-2023 09:10-0500 Systolic blood pressure 153 mm[Hg] Christiano Verhoff PA-C [facility] Phone[facility] 07-19-2023 10:30-0500 Body height 157.5 cm Christiano Verhoff PA-C Work Phone: [facility] 07-19-2023 10:30-0500 Body mass index (BMI) [Ratio] 32.01 kg/m2 Christiano Verhoff PA-C Work Phone: [facility] 07-19-2023 10:30-0500 Body weight 79.38 kg Christiano Verhoff PA-C Work Phone: [facility] 07-19-2023 10:30-0500 Diastolic blood pressure 80 mm[Hg] Christiano Verhoff PA-C Work Phone: [facility] 07-19-2023 10:30-0500 Heart rate 71 /min Christiano Verhoff PA-C Work Phone: [facility] 07-19-2023 10:30-0500 Respiratory rate 16 /min Christiano Verhoff PA-C Work Phone: [facility] 07-19-2023 10:30-0500 SaO2% (BldA) [Mass fraction] 99 % Christiano Verhoff PA-C Work Phone: [facility] 07-19-2023 10:30-0500 Systolic blood pressure 157 mm[Hg] Christiano Verhoff PA-C Work Phone: [facility] 10-23-2022 13:15-0400 Body height 160.02 cm Janay Elizalde Other [facility] Other 10-23-2022 13:15-0400 Body temperature 97.3 [degF] Janay Elizalde Other [facility] Other 10-23-2022 13:15-0400 Diastolic blood pressure 70 mm[Hg] Janay Elizalde Other [facility] Other 10-23-2022 13:15-0400 Respiratory rate 16 /min Janay Elizalde Other [facility] Other 10-23-2022 13:15-0400 SaO2% (BldA) [Mass fraction] 97 % Jnaay Elizalde Other [facility] Other 10-23-2022 13:15-0400 Systolic blood pressure 147 mm[Hg] Janay Elizalde Other [facility] Other 12-09-2021 19:05-0400 Body height Faustina Willis Other [facility] Other 12-09-2021 19:05-0400 Body mass index (BMI) [Ratio] 33.83 kg/m2 Faustina Willis Other [facility] Other 12-09-2021 19:05-0400 Body temperature 97.7 [degF] Faustina Brownault Other [facility] Other 12-09-2021 19:05-0400 Body weight 86.64 kg Faustina Brownault Other [facility] Other 12-09-2021 19:05-0400 Respiratory rate 16 /min Faustina Brownault Other [facility] Other 12-09-2021 19:05-0400 SaO2% (BldA) [Mass fraction] 98 % Faustina Brownault Other [employer] Other Encounters Encounter Date Encounter Type Care Provider Facility Start: 04-16-2024 End: 04-16-2024 Bamboo flowschuckie Waldron PhD Work Phone: [facility] Start: 04-16-2024 End: 04-16-2024 Bamboo flowsheet Elliot Waldron PhD Work Phone: [facility] Start: 04-04-2024 End: 04-04-2024 Bamboo flowsheet Sabra Valadez DO Work Phone: [facility] Start: 04-04-2024 End: 04-04-2024 Bamboo flowsheet Sabra Valadez DO Work Phone: [facility] Start: 04-04-2024 End: 04-04-2024 Office outpatient new 45 minutes Sabra Valadez DO Work Phone: [facility] Comment on above: Memory loss (Primary Dx); Long-term use of high-risk medication Start: 04-04-2024 End: 04-04-2024 ambulatory SABRA VALADEZ Not Available Start: 02-29-2024 End: 02-29-2024 ambulatory MELONY AICHHOLZ Not Available Start: 11-28-2023 Patient encounter procedure Sabra Valadez DO Work Phone: [facility] Start: 11-28-2023 End: 11-28-2023 ambulatory MELONY AICHHOLZ Not Available Start: 10-16-2023 End: 10-17-2023 [facility] Start: 10-11-2023 End: 10-12-2023 ambulatory [facility] Start: 10-04-2023 End: 10-04-2023 ambulatory CHRISTIANO QUINTANA [facility] Start: 09-28-2023 End: 09-28-2023 ambulatory MELONY AICHHOLZ Not Available Start: 09-25-2023 End: 10-25-2023 ambulatory [facility] Start: 09-05-2023 Telephone encounter Jojo Gao RN [facility] Start: 09-05-2023 End: 09-25-2023 ambulatory [facility] Start: 08-30-2023 End: 08-31-2023 ambulatory [facility] Start: 08-30-2023 End: 08-30-2023 ambulatory [facility] Start: 08-30-2023 End: 08-30-2023 Office outpatient visit 25 minutes Tomas PRAJAPATI Work Phone: [facility] Comment on above: Lumbar spondylosis ( Primary Dx); Spinal stenosis of lumbar region with neurogenic claudication; Pain of right middle finger Start: 08-15-2023 End: 08-16-2023 ambulatory [facility] Start: 07-19-2023 End: 07-19-2023 ambulatory [facility] Start: 07-19-2023 End: 07-19-2023 Office outpatient new 45 minutes [facility] Work Phone: [facility] Comment on above: Lumbar neuritis (Michelle tyree Dx); Lumbar spondylosis; Disorder of sacrum; Lumbar radiculopathy, chronic Start: 07-13-2023 End: 07-13-2023 ambulatory MELONY AICHHOLZ Not Available Start: 06-29-2023 End: 06-30-2023 ambulatory MELONY J AICHHOLZ [facility] Start: 06-28-2023 End: 06-28-2023 ambulatory MELONY AICHHOLZ Not Available Start: 12-13-2022 End: 12-13-2022 ambulatory Hill Foreman Facility:[facility] Start: 12-13-2022 End: 12-13-2022 ambulatory [employer] Elizalde Work Phone: [facility] Work Phone: Start: 12-13-2022 End: 12-13-2022 Patient encounter procedure [employer]ia Elizalde Work Phone: [facility] [address] Work Phone: Start: 10-23-2022 Office outpatient visit 15 minutes Janay Zuletaler [facility] Start: 10-23-2022 End: 10-23-2022 ambulatory Janay Elizalde [facility] Other Start: 10-23-2022 End: 10-23-2022 Patient encounter procedure [employer]ia Elizalde Work Phone: [facility] Work Phone: Start: 01-14-2022 End: 01-15-2022 ambulatory CHAZ MONTALVO Facility:[facility] Start: 12-09-2021 End: 12-09-2021 ambulatory Faustina Willis Other [facility] Other Start: 12-09-2021 Office outpatient ne w 20 minutes Faustinakatlin Willis [facility] Start: 09-02-2021 ambulatory Noa JM Reid y:[facility] Start: 03-11-2021 End: 03-12-[address] MACI SALCIDO Facility:[facility] Procedures Date Procedure Procedure Detail Performing Clinician Start: 10-16-2023 Mammography Shaquille Valadez DO Work Phone: Start: 12-13-2022 Plain X-ray of bilat eral hands DAKSHA Janay Elizalde Work Phone: Start: 10-23-2022 Radiologic examinati on of knee DAKSHA Janay Elizalde Work Phone: Start: 05-06-2021 Colonoscopy Christiano Verh off PA-C Work Phone: Plan of Treatment Date Care Activity Detail Author Start: 05-06-2031 Screening for malign ant neoplasm of colon [facility] Start: 11-27-2024 Medicare Annual Well ness (AWV) Medicare Annual Wellness (AWV) [facility] Start: 10-15-2024 Screening for malign ant neoplasm of breast Mammogram [facility] Start: 08-29-2024 Tobacco Screening Tobacco Screening [facility] Start: 07-19-2024 Adult BMI Screening Adult BMI Screen ing [facility] Start: 07-19-2024 Tobacco Screening Tobacco Screening [facility] Start: 05-29-2024 End: 05-29-2024 Patient encounter procedure 05/29/2024 11:20 AM EST Office Visit [facility] [address] [place] [phone] Naila Miguel NP [address] [place] [address] [facility] Start: 05-29-2024 End: 05-29-2024 Patient encounter procedure 05/29/2024 9:40 AM EST Office Visit [facility] [address] [place] [phone] Melony Montalvo NP [address] [place] [address] [facility] Start: 04-16-2024 End: 04-16-2024 Patient encounter procedure [facility] Comment on above: Memory loss Start: 04-04-2024 End: 04-04-2025 MR Brain WO and W contrast IV MR brain w and wo contrast routine Imaging Routine Memory loss Expected: 04/04/2024, Expires: 04/04/2025 [facility] Work Phone: Comment on above: Expected: 04/04/2024 , Expires: 04/04/2025 Start: 04-04-2024 End: 04-04-2025 Thyrotropin [Units/volume] in Serum or Plasma TSH Lab Routine Long-term use of high-risk medication Expected: 04/04/2024 (Approximate), Expires: 04/04/2025 [facility] Comment on above: Expected: 04/04/2024 (Approximate), Expires: 04/04/2025 Start: 04-04-2024 End: 04-04-2024 Patient encounter procedure 04/04/2024 12:00 PM EDT Office Visit [facility] [address] [place] [phone] Sabra Valadez DO [address] [place] [address] Arrived [facility] Comment on above: Arrived Start: 02-25-2024 Influenza vaccination Influenz a Vaccine (#1) [facility] Start: 10-04-2023 End: 10-04-2023 Patient encounter procedure 10/04/2023 8:30 AM EDT Office Visit [facility] [address] [place] [phone] Christiano Quintana, TED [address] [place] [address] [facility] Start: 07-19-2023 End: 07-19-2024 MR Lumbar spine WO contrast MR lumbar spine without contrast Imaging Routine Lumbar radiculopathy, chronic Expected: 07/19/2023, Expires: 07/19/2024 [facility] Work Phone: Comment on above: Expected: 07/19/2023 , Expires: 07/19/2024 Start: 02-24-2023 COVID-19 Vaccine ( season) COVID-19 Vaccine ( season) [facility] Start: 12-13-2022 [facility] Start: 08-19-2021 DTaP,Tdap and Td Vac cines (2 - Td or Tdap) DTaP,Tdap and Td Vaccines (2 - Td or Tdap) [facility] Start: 01-22-2021 Fall Risk Screening [facility] Start: 01-22-2006 Administration of varicella zoster vaccine Zoster (Shingles) Vaccine (1 of 2) [facility] Start: 01-22-1974 Adult BMI Follow Up Plan Adult BMI Follow Up Plan [facility] [employer] [facility] Start: 1968 Depression Screening Depression Scre ening [facility] Start: 1955 Medicare Annual Well ness Visit Medicare Annual Wellness Visit [facility] [employer] [facility] Start: 1955 Screening for malign ant neoplasm of colon [facility] Immunizations Immunization Date Immunization Notes Care Provider Fa [facility] 04-12-2024 influenza virus vaccine, unspecified formulation Elliot Waldron PhD Work Phone: [facility] 12-04-2023 Pneumococcal Conjuga te PCV 20 Christopher Rory DO Work Phone: [facility] 04-21-2023 Influenza, High-dose Seasonal, Quadrivalent, Preservative Free Christopher Rory DO Work Phone: [facility] 04-21-2023 influenza virus vaccine, unspecified formulation Christopher Rory DO Work Phone: [facility] 06-16-2022 Influenza, High-dose Seasonal, Quadrivalent, Preservative Free Christopher Rory DO Work Phone: [facility] 04-25-2020 Seasonal, quadrivale nt, recombinant, injectable influenza vaccine, preservative free Christopher Rory DO Work Phone: [facility] 08-19-2011 tetanus toxoid, redu leobardo diphtheria toxoid, and acellular pertussis vaccine, adsorbed Christopher Rory DO Work Phone: [facility] Payers Date Payer Category Payer Self-pay [id number] 2021 Medicare (Managed Care) [facility] [id number] 2021 Unknown [id number]. [id number] 2020 Unknown [id number] 1959 Self-pay [id number] 1959 Unknown [id number] 1956 Unknown [id number] 2.16.840.1.223347.3.579. 2.593 1956 Unknown [id number] 2.16.840.1.272301.3.579. 2.593 1956 Unknown [id number] 2.16.840.1.441772.3.579. 2.593 1956 Unknown [id number] 2.16.840.1.737659.3.579. 2.1285 1956 Unknown [id number] 2.16.840.1.214539.3.579. 2.128 1956 Unknown [id number] 2.16.840.1.297295.3.579. 2.128 1956 Unknown [id number] 2.16.840.1.697170.3.579. 2.128 1956 Unknown [id number] 2.16.840.1.603024.3.579. 2.1285 1956 Unknown [id number] 2.16.840.1.450260.3.579. 2.1285 1956 Unknown [id number] 2.16.840.1.511724.3.579. 2.1285 1956 Unknown [id number] 2.16.840.1.844453.3.579. 2.1286 1956 Unknown [id number] 2.16.840.1.407148.3.579. 2.6 1956 Unknown [id number] 2.16.840.1.730057.3.579. 2.1286 1956 Unknown [id number] 2.16.840.1.855593.3.579. 2.1259 1956 Unknown [id number] 2.16.840.1.025927.3.579. 2.9 1956 Unknown [id number] 2.16.840.1.295262.3.579. 2.1258 1956 Unknown [id number] 2.16.840.1.701194.3.579. 2.1258 1956 Unknown [id number] 2.16.840.1.994879.3.579. 2.9 1956 Unknown [id number] 2.16.840.1.928737.3.579. 2.1259 Unknown [id number] 2.16.840.1.717141.3.579. 2.531 Unknown [id number] 2.16.840.1.913827.3.579. 2.531 Social History Date Type Detail Facility Unknown if ever smoked [facility] Other Start: 07-19-2023 End: 09-21-2023 Sex Assigned At [facility] Other Start: 1955 Sex Assigned At Female [facility] Start: 06-28-2023 End: 07-19-2023 Tobacco smoking status NHIS Never smoked tobacco [facility] Start: 06-28-2023 End: 07-19-2023 Tobacco use and exposure Smokeless tobacco non-user [facility] Start: 07-19-2023 End: 08-30-2023 Alcohol intake Current non-drinker of alcohol (finding) [facility] Start: 07-19-2023 End: 09-21-2023 History of Social function [facility] Childcare Unknown [facility] Start: 04-26-2021 Gender identity Identifies as female gender (finding) [facility] Start: 03-30-2024 Alcoholic beverage intake Lifetime non-drinker (finding) [facility] Do you belong to any clubs or organizations such as adventism groups, unions, fraternal or athletic groups, or school groups? Yes [facility] Are you now , , , , never or living with a partner? [facility] How often to you hav e a drink containing alcohol? Never [facility] Do you feel stress - tense, restless, nervous, or anxious, or unable to sleep at night because your mind is troubled all the time - these days [OSQ] Not at all [facility] (I/We) worried wheth er (my/our) food would run out before (I/we) got money to buy more. Never true [facility] In the past 12 month s, was there a time when you were not able to pay the mortgage or rent on time? No [facility] Start: 1955 Sex assigned at Not on file [facility] NEGATED: Highlighted rowStart: NINF History of tobacco use Passive smoker [facility] Medical Equipment Procedure Code Equipment Code Equipment Origin al Text Equipment Identifier Dates Lens Mx60 20.5 - [id number] - [id number] Start: 07-10-2017 [employer] [id number] Start: 06-12-2017 Carmella Mckeon [facility] [id number] Start: 05-12-2021 Clinical Notes 12-09-2021 to 04-04-2024 Sabra Valadez DO - 04/04/2024 12:00 PM EDTTelephone Encounter - Jojo Gao RN - 09/05/2023 11:36 AM EDTTelephone Encounter - Christiano Quintana PA-C - 09/05/2023 11:36 AM EDT Note Date & Type Note Facility 04-04-2024 History of Presen t illness Narrative Images from the original note were not included. Chief complaint: Memory impairment Subjective Emily Aguirre, 69 y.o., female Emily is here for a neurologic consult at the request of Melony Montalvo CNP for memory impairment. Patient is here with her daughter. The patient states she started noticing issues with her memory about a year ago. Patient lives at home with her . Patient states she is struggling with dates or events and names, both which she was always good at. She will go into the grocery store and forget why she goes there. Patient is still driving. She has had numerous occasions where she was in her town of [place] and she does not know where she is when she's driving. Patient reports some anxiety but no agitation. Patient states her anxiety is mostly around the fact her mother had dementia and all four of her Aunt's so she gets nervous when she can't remember things. Patient states she is sleeping well getting about 8 hours. Patient states she does have very vivid dreams and is tearful talking about this. She states her dreams are about her family members who had dementia. She denies any hallucinations. She admits to some balance issues. Reports a few falls the last of which was last year. Patient denies any issues with ADL's. MOCA 20/ Review of Systems Constitutional: Negative for appetite change, fatigue and fever. Respiratory: Negative for cough, shortness of breath and wheezing. Cardiovascular: Negative for chest pain, palpitations and leg swelling. Gastrointestinal: Negative for abdominal pain, constipation, diarrhea and nausea. Musculoskeletal: Negative for arthralgias, gait problem and myalgias. Neurological: Negative for dizziness, tremors, numbness and headaches. Memory impairment Past Medical History: Diagnosis Date Abnormal mammogram of right breast Arthralgia Arthritis Bilateral hand pain Bilateral knee pain Cough in adult Elevated blood pressure reading 06/28/2023 Elevated blood pressure reading Foraminal stenosis of lumbar region Gastroesophageal reflux disease without esophagitis Heartburn Herniated lumbar intervertebral disc History of being hospitalized childbirth x4 Hypertension (CMS/HCC) Iron deficiency anemia Joint swelling Left hand pain Lower extremity edema Lumbar degenerative disc disease Lumbar radiculopathy On potassium wasting diuretic therapy Osteopenia Osteoporosis (CMS/HCC) Other headache syndrome 06/28/2023 Pain and swelling of ankle, right Post-menopause Respiratory illness Scabies Senile purpura (CMS/HCC) Shortness of breath on exertion Vitamin B12 deficiency Past Surgical History: Procedure Laterality Date BLADDER SUSPENSION CATARACT EXTRACTION, BILATERAL CHOLECYSTECTOMY HYSTERECTOMY LASIK ROTATOR CUFF REPAIR Right 05/12/2021 Dr Ferguson Family History Problem Relation Name Age of Onset Hypertension Mother Heart disease Father Stroke Father Cancer Sibling Social History Tobacco Use Smoking status: Never Passive exposure: Never Smokeless tobacco: Never Substance Use Topics Alcohol use: Never Allergies: Penicillins Vitals: 04/04/24 1142 BP: 150/86 Pulse: 84 SpO2: 96% Body mass index is 33.14 kg/m . weight: 181 lb 3.2 oz Neurologic exam: Mental status: Awake, alert to person, place and time. [place] cognitive assessment: 20/30 Language is fluent without aphasia. Attention and concentration are normal. Fund of knowledge is appropriate for level of education. Cranial nerves: CN II: Visual acuity is normal. Visual bowen full to confrontation. CN III, IV, : pupils equal round and reactive to light. Extraocular movements intact. No ptosis present. CN V: Facial sensation is normal. CN VII: Full and symmetric facial movement. CN VIII: Hearing is normal to finger rub bilaterally: CN IX and X: Palate elevates symmetrically. CN XI: Shoulder shrug is normal bilaterally. CN XII: Tongue is midline without atrophy or fasciculation. Motor: RUE Strength deltoid, , biceps , triceps , wrist extensors , wrist flexor , scientific technical writer strength 5/5. LUE Strength deltoid , biceps , triceps , wrist extensors , wrist flexor , scientific technical writer strength 5/5. RLE Strength illopsoas, quadriceps, tibialis anterior, and gastrocnemius strength 5/5. LLE Strength illopsoas, quadriceps, tibialis anterior, and gastrocnemius strength 5/5. Normal tone x4 extremities. Bulk is normal. Bulk is normal. Sensory: Sensation is intact to light touch throughout Four extremities. Reflexes: RUE biceps reflex 2+ brachioradialis reflex 2+ . LUE biceps reflex 2+ brachioradialis reflex 2+ . RLE knee reflex 2+ . LLE knee reflex 2+ . Knowles's sign negative. Coordination: [id number] testing and rapid alternating movements are normal Gait: Normal Review and summary of old records: [place] cognitive assessment advanced Neurology on 04/04/2024 was 20 /30 Vitamin B12 level on 10/11/2023: 325 normal Assessment/Plan Diagnoses and all orders for this visit: Memory loss It is my impression that the patient has memory impairment. [place] cognitive assessment was 20/30. Vitamin B12 level is normal. Patient has a family history of Alzheimer's disease in her mother. This is creating some stress for her. Certainly with this abnormality found on [place] cognitive assessment we need to pursue further evaluation of potentially alternative causes of memory impairment that can be life-threatening or debilitating not clinically identified and treated. Plan: MRI of the brain with and without contrast Thyroid stimulating hormone Neuropsych testing We may consider medication such as Aricept or Namenda depending clinical course and results above The patient primarily speaks Canadian. She was here with her daughter, Shira, who provided history and translated for her. All questions were answered. Communication was clear. Pt has been fully educated on their diagnosis, lab results, treatment options, follow up plan, and return instructions documented in this encounter [facility] 09-05-2023 Miscellaneous Notes Last office visit PT was ordered for right hand. Call received from physical therapist requesting that the order be changed to OT. Order for OT has been pended for review and signature. done documented in this encounter [facility] 09-05-2023 Telephone encounter Note Last office visit PT was ordered for right hand. Call received from physical therapist requesting that the order be changed to OT. Order for OT has been pended for review and signature. [facility] 09-05-2023 Telephone encounter Note done [facility] 08-30-2023 History of Presen t illness Narrative [facility] [address] [place] [address] Patient: Emily Aguirre Sex: female : 1955 Age: 68 y.o. PCP: MELONY MONTALVO, EQUITY RESEARCH ASSOCIATE-FURNACE OPERATOR AND TENDER 08/30/2023 Emily Aguirre is here for a(n) follow up after completing a L-spine MRI on 08-15-2023. Patient also complains of pain in her right hand. Today's office visit was conducted with software program manager Shay #[id number]. Chief Complaint Patient presents with Back Pain HPI: Patient reports that she has hx of back injections per neurologist. Last injection was approximately 2 years ago with significant relief. Patient states she was getting injections every 3-6 months. Back Pain This is a chronic problem. The current episode started more than 1 year ago (years ago injured at work while pushing a heavy object). The problem occurs intermittently. The problem has been gradually improving since onset. The pain is present in the lumbar spine, gluteal and sacro-iliac (varies which side pain is located or can be both). The quality of the pain is described as aching. The pain radiates to the right thigh (Right hip down Right leg anteriorly/laterally to right below knee). The pain is at a severity of 4/10 (pain can reach 10/10 depending on activity.). The pain is moderate. The pain is Worse during the day (pain is initially worse in the morninig). The symptoms are aggravated by bending and twisting (standing, walking, stairs, lifting, twisting, leaning, push/pull, cold). Stiffness is present In the morning. Associated symptoms include leg pain (RLE) and weakness. Pertinent negatives include no bladder incontinence, bowel incontinence, numbness or tingling. Risk factors include obesity. She has tried chiropractic manipulation, NSAIDs, muscle relaxant and analgesics (hx of injections with sig relief, tizanidine-helped with headache, IBU, Tylenol, salonpas, lidocaine patches) for the symptoms. Hand Pain There was no injury mechanism. The pain is present in the right hand (middle finger on right hand- hard to bend and pain with any movement). The quality of the pain is described as aching. The pain does not radiate. The pain is at a severity of 8/10. The pain is severe. The pain has been Fluctuating since the incident. Associated symptoms include muscle weakness. Pertinent negatives include no numbness or tingling. The symptoms are aggravated by movement and lifting. She has tried acetaminophen and rest (zanaflex, topical ointment,) for the symptoms. The effect of pain on patient's ADLS: Moderate Impairment. Past Medical History: Diagnosis Date Allergic Penicilin Arthritis Back pain PONV (postoperative nausea and vomiting) Visual impairment glasses Past Surgical History: Procedure Laterality Date ARTHROSCOPY REPAIR ROTATOR CUFF SHOULDER Right 05/12/2021 Performed by Myke Ferguson DO at [facility] ARTHROSCOPY SHOULDER Right 05/12/2021 Performed by Myke Ferguson DO at [facility] CHOLECYSTECTOMY COLONOSCOPY COLONOSCOPY N/A 05/06/2021 Performed by Wally Hu DO at [facility] ESOPHAGOGASTRODUODENOSCOPY N/A 05/06/2021 Performed by Wally Hu DO at [facility] HYSTERECTOMY 1990 OTHER SURGICAL HISTORY bladder lift PHACO KELMAN I IMPLANT INTRAOCULAR LENS Left 07/10/2017 Performed by Jose Damian MD at [facility] PHACO KELMAN I IMPLANT INTRAOCULAR LENS Right 06/12/2017 Performed by Jose Damian MD at [facility] Allergies Allergen Reactions Penicillins Throat swelling Family History Problem Relation Age of Onset Breast cancer Sister 44 Pneumonia Mother Heart attack Father Social History Socioeconomic History Marital status: Spouse name: Not on file Number of children: Not on file Years of education: Not on file Highest education level: Not on file Occupational History Not on file Tobacco Use Smoking status: Never Smokeless tobacco: Never Substance and Sexual Activity Alcohol use: No Drug use: No Sexual activity: Defer Other Topics Concern Not on file Social History Narrative Not on file Social Determinants of Health Financial Resource Strain: Not on file Food Insecurity: No Food Insecurity (08/30/2023) Hunger Screening Food Insecurity - Worry: Never True Food Insecurity - Inability: Never True Transportation Needs: Not on file Physical Activity: Not on file Stress: Not on file Social Connections: Not on file Interpersonal Safety: Not on file Housing Instability: Not on file Review of Systems Constitutional: Negative for chills. HENT: Pt having Right sided molar pain in mouth Eyes: Negative. Respiratory: Negative. Cardiovascular: Negative. Gastrointestinal: Negative. Negative for bowel incontinence. Genitourinary: Negative. Negative for bladder incontinence. Musculoskeletal: Positive for back pain. Skin: Negative. Neurological: Positive for weakness. Negative for tingling and numbness. Vital Signs: BP 153/88 (BP Site: Right Arm, BP Postition: Sitting) Pulse 85 Resp 18 SpO2 96% Physical Exam: GENERAL - Healthy patient that appears stated age. HEENT - Normocephalic / Atraumatic, Extraoccular movements intact, trachea midline, thyroid within normal limits. CV - pulse regular, Warm extremities with appropriate color of nailbeds. RESP - No obvious wheezing, No Shortness of Breath, No overexertion response to exam maneuvers. COORDINATION - remains intact. PSYCH - Alert and Oriented x4, Attentive and appropriate, constitutionally normal, displays normal mood and affect per situation, answered questions appropriately during examination, demonstrated appropriate attention during discussion, demonstrated appropriate cognitive reasoning and understanding of the medical condition by asking appropriate questions regarding the diagnosis and risks/benefits/alternatives of treatment modalities. No obvious deficits in memory, reasoning, or intellect. Distal Joint Exam - Upper Extremity: SKIN - No rashes or bruising in the area of the patient s pain. EXTREMITIES - Upper extremities are warm, with minimal edema and palpable pulses. Strength is 5/5 all muscle groups of the bilateral upper extremities. There is no obvious atrophy, fasciculations, or spasms. There are no notable sensory deficits in the overlying dermatomal distributions. Examination of the Right Middle digit joint reveals tenderness to palpation over the joint space. Limited AROM. Mild swelling is noted without significant erythema. Pain is elicited with flexion and extension of the joint. Lumbar: SKIN - No rashes or bruising in the area of the patient s pain. LYMPH NODES - demonstrate no obvious enlargement. EXTREMITIES - Lower extremities are warm, with minimal edema and palpable pulses. Minimal tenderness to palpation noted in the lumbar spine and paraspinal musculature. Mild pain is elicited with flexion, extension, and lateral rotation of the lumbar spine. Range of motion is diminished with these motions due to pain. Facet palpation is noted to be somewhat tender and facet loading maneuvers are mildly positive, but not concordant with the patient s normal pain complaints. STRENGTH - noted to be 5 out of 5 all muscle groups bilateral lower extremities including muscles involving hip flexion and abduction, knee flexion and extension, as well as foot dorsiflexion and plantarflexion. No notable atrophy, fasciculations or spasm. SENSORY - No notable sensory deficits in the bilateral lower extremities to touch or pinprick in all dermatomal distributions. Straight Leg Raise is negative. Gait is normal. Assessment/Treatment Plan: Emily was seen today for back pain. Diagnoses and all orders for this visit: Lumbar spondylosis - pregabalin (LYRICA) 50 mg capsule; Take 1 capsule (50 mg total) by mouth in the morning and 1 capsule (50 mg total) before bedtime. Spinal stenosis of lumbar region with neurogenic claudication - pregabalin (LYRICA) 50 mg capsule; Take 1 capsule (50 mg total) by mouth in the morning and 1 capsule (50 mg total) before bedtime. Pain of right middle finger - X-ray hand right minimum 3 views; Future - Ambulatory referral to Physical Therapy; Future Lyrica 5o mg BID With Regard to medication management, it is felt that the patient would benefit from the changes mentioned above. This should provide symptomatic pain relief as part of the comprehensive pain management strategy outlined. Risks, Benefits, Side effects, and possible interactions of these medications were reviewed and the medication agreement has been discussed, agreed upon, and signed. The patient understands compliance concerns and the requirement of pill counts and drug screens while taking medications prescribed by this clinic. Right Hand xray Imaging/Diagnostic Testing - It is felt that additional diagnostic testing is necessary to further evaluate the patients current pain pathology. For this reason, we will order additional imaging/diagnostic testing noted above. It is hopeful that this study will identify a significant pain generator that will be amenable to therapy. It is felt that this modality is necessary due to the severity and chronicity of symptoms and physical exam findings combined with the lack of recent imaging/diagnostic testing of the area. Physical/Aquatic Therapy - It is felt that the patient will benefit from a course of physical therapy focusing on the above mentioned diagnosis. We will recommend that the physical therapist fully evaluate and treat at their discretion considering the modalities that are most useful for the condition being treated. This may include modalities of comfort including moist heat, ultrasound, and TENS therapy. It may also utilize manual therapy and myofascial release for the myofascial component of the patient s pain. It will likely advance to modalities aimed at stabilizing and strengthing the target area while improving range of motion as well. We are also requesting that the physical therapist send notes that will keep our clinic updated to the patient s progress. Follow up 1 month The medications prescribed have been reviewed for medication interactions/contraindications and/or for upcoming procedures: continue current medication regimen without any changes. DISCUSSION: Treatment options discussed with patient and all questions answered to patient's satisfaction. Discussed the rules and regulations surrounding prescription of opioids and compliance at length. Failure to follow the rules and regulation will result in tapering and discontinuation of medications if applicable. Prescribed medication that requires intensive monitoring for toxicity Lyrica. OARRS was reviewed, discussed and appropriate for medications prescribed. The spine model was demonstrated and MRI was reviewed and used to explain the condition. Chronic conditions not treated during this visit that affected my overall medical decision making: Obesity OARRS: Reviewed. Scribe Statement: Scribed for and in the presence of CHRISTIANO QUINTANA PA-C by Melony Russo CNA. Provider Statement: I, CHRISTIANO QUINTANA PA-C, personally performed the services described in the documentation, as scribed by Melony Russo CNA in my presence, and it is both accurate and complete. Melony Russo CNA 08/30/23 1039 Melony Russo CNA 08/30/23 1114 Christiano Quintana PA-C 08/30/23 1120 documented in this encounter [facility] 07-19-2023 History of Presen t illness Narrative [facility] [address] [place] [address] Patient: Emily Aguirre Sex: female : 1955 Age: 68 y.o. PCP: MELONY MONTALVO, DAKSHA-FURNACE OPERATOR AND TENDER 07/19/2023 Emily Aguirre is here for a(n) initial consultation for low back pain. Chief Complaint Patient presents with Back Pain HPI: Patient reports that she has hx of back injections per neurologist. Last injection was approximately 2 years ago with significant relief. Patient states she was getting injections every 3-6 months. Back Pain This is a chronic problem. The current episode started more than 1 year ago (years ago injured at work while pushing a heavy object). The problem occurs constantly. The pain is present in the lumbar spine, gluteal and sacro-iliac. The quality of the pain is described as aching. The pain radiates to the right thigh (posterior aspect of RLE to low calf, anterior thigh from groin to knee). The pain is at a severity of 6/10. The pain is moderate. The pain is Worse during the day (pain is initially worse in the morninig). The symptoms are aggravated by bending and twisting (standing, walking, stairs, lifting, twisting, leaning, push/pull, cold). Stiffness is present In the morning. Associated symptoms include leg pain (RLE) and weakness. Pertinent negatives include no bladder incontinence, bowel incontinence, numbness or tingling. Risk factors include obesity. She has tried chiropractic manipulation, NSAIDs, muscle relaxant and analgesics (hx of injections with sig relief, tizanidine-helped with headache, IBU, Tylenol, salonpas, lidocaine patches) for the symptoms. The effect of pain on patient's ADLS: Moderate Impairment. Past Medical History: Diagnosis Date Allergic Penicilin Arthritis Back pain PONV (postoperative nausea and vomiting) Visual impairment glasses Past Surgical History: Procedure Laterality Date ARTHROSCOPY REPAIR ROTATOR CUFF SHOULDER Right 05/12/2021 Performed by Myke Ferguson DO at [facility] ARTHROSCOPY SHOULDER Right 05/12/2021 Performed by Myke Ferguson DO at [facility] CHOLECYSTECTOMY COLONOSCOPY COLONOSCOPY N/A 05/06/2021 Performed by Wally Hu DO at [facility] ESOPHAGOGASTRODUODENOSCOPY N/A 05/06/2021 Performed by Wally Hu DO at [facility] HYSTERECTOMY 1990 OTHER SURGICAL HISTORY bladder lift PHACO KELMAN I IMPLANT INTRAOCULAR LENS Left 07/10/2017 Performed by Jose Damian MD at [facility] PHACO KELMAN I IMPLANT INTRAOCULAR LENS Right 06/12/2017 Performed by Jose Damian MD at [facility] Allergies Allergen Reactions Penicillins Throat swelling Family History Problem Relation Age of Onset Breast cancer Sister 44 Pneumonia Mother Heart attack Father Social History Socioeconomic History Marital status: Spouse name: Not on file Number of children: Not on file Years of education: Not on file Highest education level: Not on file Occupational History Not on file Tobacco Use Smoking status: Never Smokeless tobacco: Never Substance and Sexual Activity Alcohol use: No Drug use: No Sexual activity: Defer Other Topics Concern Not on file Social History Narrative Not on file Social Determinants of Health Financial Resource Strain: Not on file Food Insecurity: No Food Insecurity (07/19/2023) Hunger Screening Food Insecurity - Worry: Never True Food Insecurity - Inability: Never True Transportation Needs: Not on file Physical Activity: Not on file Stress: Not on file Social Connections: Not on file Interpersonal Safety: Not on file Housing Instability: Not on file Review of Systems HENT: Negative. Respiratory: Negative for cough and shortness of breath. Gastrointestinal: Negative for bowel incontinence, constipation and diarrhea. Genitourinary: Positive for urgency (intermittently). Negative for bladder incontinence and frequency. Musculoskeletal: Positive for back pain. Skin: Negative. Neurological: Positive for weakness. Negative for tingling and numbness. Psychiatric/Behavioral: Negative. Vital Signs: BP 157/80 Pulse 71 Resp 16 Ht 157.5 cm (5' 2 ) Wt 79.4 kg (175 lb) SpO2 99% BMI 32.01 kg/m Physical Exam: GENERAL - Healthy patient that appears stated age. HEENT - Normocephalic / Atraumatic, Extraoccular movements intact, trachea midline, thyroid within normal limits. CV - pulse regular, Warm extremities with appropriate color of nailbeds. RESP - No obvious wheezing, No Shortness of Breath, No overexertion response to exam maneuvers. COORDINATION - remains intact. PSYCH - Alert and Oriented x4, Attentive and appropriate, constitutionally normal, displays normal mood and affect per situation, answered questions appropriately during examination, demonstrated appropriate attention during discussion, demonstrated appropriate cognitive reasoning and understanding of the medical condition by asking appropriate questions regarding the diagnosis and risks/benefits/alternatives of treatment modalities. No obvious deficits in memory, reasoning, or intellect. Lumbar: SKIN - No rashes or bruising in the area of the patient s pain. LYMPH NODES - demonstrate no obvious enlargement. EXTREMITIES - Lower extremities are warm, with minimal edema and palpable pulses. Tenderness to palpation noted in the lumbar spine and paraspinal musculature. Pain is elicited with flexion, extension, and lateral rotation of the lumbar spine. Range of motion is diminished with these motions due to pain. Facet palpation is noted to be somewhat tender and facet loading maneuvers are mildly positive, but not concordant with the patient s normal pain complaints. STRENGTH - noted to be 5 out of 5 all muscle groups bilateral lower extremities including muscles involving hip flexion and abduction, knee flexion and extension, as well as foot dorsiflexion and plantarflexion. No notable atrophy, fasciculations or spasm. SENSORY - No notable sensory deficits in the bilateral lower extremities to touch or pinprick in all dermatomal distributions with exception to decreased sensation in the Right L5 levels. Straight Leg Raise is Positive on the Right Tenderness to palpation is noted over the Bilateral SacroIliac Joint: Fabere sign (Tommie's Test) is significantly positive, as is compression and distraction of the sacroiliac joints, which is consistent with some of the patient's normal pain. Gait is normal. Assessment/Treatment Plan: Emily was seen today for back pain. Diagnoses and all orders for this visit: Lumbar neuritis Lumbar spondylosis Disorder of sacrum Lumbar radiculopathy, chronic - MR lumbar spine without contrast; Future Lumbar spine MRI - It is felt that additional diagnostic testing is necessary to further evaluate the patients current pain pathology. For this reason, we will order additional imaging noted above. It is hopeful that this study will identify a significant pain generator that will be amenable to therapy. It is felt that this modality is necessary due to the severity and chronicity of symptoms and physical exam findings combined with the lack of recent imaging of the area. An MRI is specifically felt to be necessary due to the physical exam findings noted above and the patient s description of refractory pain in a neuropathic distribution that is not relieved by change in body position and interferes with the patient s activities of daily living Follow up after MRI The medications prescribed have been reviewed for medication interactions/contraindications and/or for upcoming procedures: continue current medication regimen without any changes. DISCUSSION: Treatment options discussed with patient and all questions answered to patient's satisfaction. Discussed the rules and regulations surrounding prescription of opioids and compliance at length. Failure to follow the rules and regulation will result in tapering and discontinuation of medications if applicable. Prescribed medication that requires intensive monitoring for toxicity We do not currently prescribe any controlled substance from this practice. The spine model was demonstrated and Xray was reviewed and used to explain the condition. Chronic conditions not treated during this visit that affected my overall medical decision making: Obesity Due to language barrier, an inspector plug seam was present via tele-communication during the history-taking and subsequent discussion (and for part of the physical exam) with this patient. OARRS: Reviewed. Scribe Statement: Scribed for and in the presence of CHRISTIANO QUINTANA PA-C by Melony Russo CNA. Provider Statement: I, CHRISTIANO QUINTANA PA-C, personally performed the services described in the documentation, as scribed by Melony Russo CNA in my presence, and it is both accurate and complete. Melony Russo CNA 07/19/23 1244 Christiano Quintana PA-C 07/19/23 1256 documented in this encounter [facility] 10-23-2022 Evaluation note Encounter Date Diagnosis Assessment Notes Sep, Injury (ICD-10 - T14.90XA) Sep, Contusion of left knee, initial encounter (ICD-10 - S80.02XA) XR images and final report reviewed, no acute bony abnormalities noted. Area wrapped today in office with Milo wrap's. Encouraged RICE therapy discussed- rest extremity, avoid excessive or strenuous activity, complete activity as tolerated; ice area for 15-20 minutes at a time multiple times a day, ensure thin cloth barrier between skin and ice; Splint/MILO wrap area; keep extremity elevated. May use OTC lidocaine patches as needed. Advised patient to use OTC NSAIDs/Tylenol as directed as needed for discomfort. Instructed patient to follow up with PCP or ortho if sx do not improve in the next 5-7 days. Immediate eval by ER for warning s/sx as discussed. Patient verbalizes understanding and is agreeable to treatment plan. Sep, Other Contusion material was printed [facility] Other 06-16-2022 Evaluation note* Encounter Date Diagnosis Assessment Notes Treatment Notes Treatment Clinical Notes Nov, Fatigue, unspecified type (ICD-10 - R53.83) Informed patient that there are no signs of infection present on physical exam today. Pt does not need treatment with an abx at this time. Encouraged pt to follow up with PCP within 1 week if symptoms persist for reevaluation. Explained to pt that in an urgent care setting, we are not able to perform labwork so further evaluation of her symptoms is limited in this setting. Pt states she has appointment with PCP this next week. Explained to pt that conditions such as anemia or vitamin deficiencies can cause fatigue. Strongly encouraged patient to get adequate sleep at night. May use Tylenol/ibuprofen as directed for any general discomfort or fevers. Pt verbalized understanding and agreement with tx plan. Swidjit Other Evaluation noteNo assessment information available [facility] Work Phone: Evaluation note* Diagnosis Lumbar neuritis- Primary Lumbar spondylosis Lumbosacral spondylosis without myelopathy Disorder of sacrum Disorders of sacrum Lumbar radiculopathy, chronic documented in this encounter [facility]* Diagnosis Lumbar spondylosis- Primary Lumbosacral spondylosis without myelopathy Spinal stenosis of lumbar region with neurogenic claudication Pain of right middle finger Pain of right middle finger documented in this encounter [facility]* Diagnosis Pain of right middle finger- Primary documented in this encounter [facility]* Diagnosis Memory loss- Primary Long-term use of high-risk medication documented [facility] this encounter [facility] - Reported* Type Description Date Medical History Arthritis Surgical History hysterectomy Surgical History gallbladder Swidjit Other History general Narrative - Reported* Type Description Date Medical History Arthritis Surgical History hysterectomy Surgical History gallbladder Hospitalization History SEE ABOVE Swidjit Other InstructionsNot on filedocumented in this encounter [facility]Not on filedocumented in this encounter [facility]ructionsNot on filedocumented in this encounter [facility] SystemReason for referral (narrative)* Consultation (Routine) - Pending Review Specialty Diagnoses / Procedures Referred By Wanda regan Referred To Contact Psychology Diagnoses Memory loss Procedures DC OFFICE/OUTPATIENT [facility] 60 MINUTES Sabra Valadez DO [address] [place] [id number] Elliot Waldron, PhD [address] [address] Referral ID Status Reason Start Date Expiration Date Visits Requested Visits Authorized [id number] Pending Review Specialty Services Required 10/01/2024 1 1 * Imaging (Routine) - Pending Review Specialty Diagnoses / Procedures Referred By Contac t Referred To Contact Radiology Diagnoses Memory loss Procedures MR brain w and wo contrast routine Sabra Valadez DO [address] [place] [id number] Referral ID Status Reason Start Date Expiration Date V isits Requested Visits Authorized [id number] Pending Review 04/04/2024 10/01/2024 1 1 [facility] Summary Purpose Family History No Family History Records FoundNo Family History Records FoundNo Family History Records FoundNo Family History Records FoundNo Family History Records Found Advance Directives Advance Directive Response Recorded Date/ Time Advance Directives No May 03, 2018 2:33pm Chief Complaint and Reason for Visit Chief Complaint T14.90XA Reason for Referral Specialty Diagnoses / Procedures Referred By Contact Referred To Contact Occupational Therapy / Rehabilitation Diagnoses Pain of right middle finger VerhoChristiano aceves PA-C [address], [address] [place] [phone] [facility] [address] [place] [address] Referral ID Status Reason Start Date Expiration Date Visits Requested Visits Authorized [id number] Authorized Specialty Services Required 09/05/2023 09/04/2024 1 1 Specialty Diagnoses / Procedures Referred By Wanda t Referred To Contact Rehabilitation Diagnoses Pain of right middle finger VerhoffChristiano PA-C [address], [address] [place] [id number] [facility] [address] [place] [address] Referral ID Status Reason Start Date Expiration Date Visits Requested Visits Authorized [id number] Authorized Specialty Services Required 08/30/2023 08/29/2024 1 1 Specialty Diagnoses / Procedures Referred By Contac t Referred To Contact Diagnoses Lumbar spondylosis Spinal stenosis of lumbar region with neurogenic claudication Christiano Quintana PA-C [address] [facility] [place] [address] Referral ID Status Reason Start Date Expiration Date V isits Requested Visits Authorized [id number] Pending Review 1 1 Specialty Diagnoses / Procedures Referred By Contac t Referred To Contact Radiology Diagnoses Lumbar radiculopathy, chronic Procedures MR lumbar spine without contrast Christiano Quintana PA-C [address] [facility], [address] [place] [id number] Referral ID Status Reason Start Date Expiration Date V isits Requested Visits Authorized [id number] Pending Review 07/19/2023 07/18/2024 1 1 Additional Source Comments INFORMATION SOURCE (unrecogn ized section and content) DATE CREATED AUTHOR 05/18/2020 [facility] DATE CREATED AUTHOR AUTHOR'S ORGANIZ ATION 01/19/2022 [facility] DATE CREATED AUTHOR AUTHOR'S ORGANIZ ATION 12/25/2022 [facility] DATE CREATED AUTHOR AUTHOR'S ORGANIZ ATION 10/26/2023 [facility] DATE CREATED AUTHOR AUTHOR'S ORGANIZ ATION 04/06/2024 [facility] EPIC REASON FOR VISIT (unrecogniz ed section and content) Reason Comments Back Pain Reason Comments Back Pain Care Teams (unrecognized sec tion and content) Team Status: Inactive Member Role Status Dates Janay Elizalde APRN Attending Provider Active Team Status: Inactive Member Role Status Dates Hill Foreman MD Attending Provider Active Tear Down Man Relationship Specialty Start Date End Date Melony Montalvo APRN-FURNACE OPERATOR AND TENDER [address] [place] [address] PCP - General Nurse Practitioner 08/28/21 Tear Down Man Relationship Specialty Start Date End Date Melony Montalvo, [facility] [address] [place] [address] PCP - General Nurse Practitioner 08/28/21 Tear Down Man Relationship Specialty Start Date End Date Melony Montalvo, [facility] [address] [place] [address] PCP - General Nurse Practitioner 08/28/21 Tear Down Man Relationship Specialty Start Date End Date Jovanny Mauricio MD [address] [place] [phone] PCP - [facility] 07/27/21 Jovanny Mauricio MD [address] [place] [address] PCP - General Family Medicine 09/28/23 Melony Montalvo NP [address] [place] [address] Nurse Practitioner Family Medicine 09/28/23 Tear Down Man Relationship Specialty Start Date End Date Jovanny Mauricio MD [address] [place] [phone] PCP - [facility] 07/27/21 Jovanny Mauricio MD [address] [place] [address] PCP - General Family Medicine 09/28/23 Melony Montalvo NP [address] [place] [address] Nurse Practitioner Family Medicine 09/28/23 Tear Down Man Relationship Specialty Start Date End Date Jovanny Mauricio MD [address] [place] [address] PCP - [facility] 07/27/21 Jovanny Mauricio MD [address] [place] [address] PCP - General [facility] 09/28/23 Melony Montalvo NP [address] [place] [address] Nurse Practitioner [facility] 09/28/23 Goals (unrecognized section and content) Goals may be documented in a n alternate section FOR RECORDS PERTAINING TO PATIENTS WHO ARE OR HAVE BEEN ENROLLED IN A CHEMICAL DEPENDENCY/SUBSTANCEABUSE PROGRAM, SOME INFORMATION MAY BE OMITTED. This clinical summary was aggregated from multiple sources. Caution should be exercised in using it in the provision of clinical care. This summary normalizes information from multiple sources, and as a consequence, information in this document may materially change the coding, format and clinical context of patient data. In addition, data may be omitted in some cases. CLINICAL DECISIONS SHOULD BE BASED ON THE PRIMARY CLINICAL RECORDS. [facility]. provides no warranty or guarantee of the accuracy or completeness of information in this document.
--- NOTE | 2024-04-18 11:43 | MR_ITS ---
The [address] [address] Patient Name: ARGENIS AUGUSTE MRN: [id number] date: 1955 Sex: F Assigned Patient Location: MRI Current Patient Location: MRI Accession/Order Number: [id number] Exam Date: 04/18/2024 13:10 Report Date: 04/18/2024 15:52 At the request of: SABRA BOONE Procedure: MR head/brain wo/w con MR head/brain wo/w con, 04/18/2024 1:10 PM EDT INDICATION: Memory Loss COMPARISON: There is no appropriate prior study for comparison. TECHNIQUE: Multiplanar, multisequential MRI images of brain were obtained without and with injection of contrast. FINDINGS: The cerebral sulci as well as ventricular system are appropriate for age. There is no restricted diffusion. Hyperintensities on T2 and FLAIR images in the dugan radiata and centrum semiovale with sparing of U fibers are nonspecific, statistically most likely consistent with moderate microvascular ischemic changes. There is no intracranial mass, mass effect, midline shift, intra or extra-axial fluid collection or large hemorrhage. No abnormal enhancing lesion is noted. Normal flow-void in the intracranial vessels is noted. The visualized portions of orbits, mastoid air cells as well as paranasal sinuses are unremarkable. There is status post bilateral lens replacement. MR/MR head/brain wo/w con IMPRESSION: No acute intracranial process is noted. Moderate microvascular ischemic changes. No finding to suggest a typical neurodegenerative process. Electronically authenticated by: ELAYNE DEJESUS Date: 04/18/2024 15:52
[2024-04-18 13:05] LABS: Estimated GFR (African America >60 (>=60 mL/min/1.73m^2); Estimated GFR (Non-African Ame >60 (>=60 mL/min/1.73m^2)
== END 2024-04-18 11:37 | disposition home or self-care (01) ==
PROVIDERS: PCP Nurse Practitioner; Visit Provider Psychiatry & Neurology Neurology
DX: R41.3 Other amnesia (principal); Z79.899 Other long term (current) drug therapy
CPT/HCPCS: 36415; 70553; 82565; A9575

== ENCOUNTER 2024-06-10 11:30 | Outpatient (OUT) | payer OTHER, SELFPAY ==
--- OUTSIDE RECORDS SUMMARY | 2024-06-10 11:47 | XMS_ITS | CCD ---
Author Organization [facility] Care Team Providers Care Morgue Technician Name Role Phone Faustina Willis Unavailable SHAIKH Noa ONEAL Admitting Unavailable SHAIKH Noa ONEAL Attending Unavailable LOLY, DR LUX Primary Care Unavailable HOUSE, DR LUX Admitting Unavailable HOUSE, DR LUX Attending Unavailable HOUSE, DR LUX Primary Care Unavailable HOUSE, DR LUX Consulting Unavailable AICHHOLZ, PHARMACY TECHNICIAN ASSISTANT MELONY Admitting Unavailable AICHHOLZ, PHARMACY TECHNICIAN ASSISTANT MELONY Attending Unavailable AICHHOLZ, PHARMACY TECHNICIAN ASSISTANT MELONY Primary Care Unavailable AICHHOLZ, PHARMACY TECHNICIAN ASSISTANT MELONY Consulting Unavailable Janay Elizalde Unavailable DAKSHA Elizalde Attending Provider [phone] MD Hill Foreman Attending Provider Hill Foreman Attending Unavailable Hill Foreman Admitting Unavailable Janay Elizalde Attending Unavailable Janay Elizalde Admitting Unavailable Aichholuziel CROOKS-Melony WARE Primary Care Provider CHRISTIANO QUINTANA Attending Unavailable AICHHOLZ, MELONY J Referring Unavailable AICHHOLZ, MELONY J Primary Care Unavailable CHRISTIANO QUINTANA Attending Unavailable CHRISTIANO QUINTANA Referring Unavailable AICHHOLZ, MELONY J Primary Care Unavailable VERHOCHRISTIANO ACEVES Referring Unavailable AICHHOLZ, MELONY J Primary Care Unavailable JOSE LHOCHRISTIANO ACEVES Referring Unavailable AICHHOLZ, MELONY J Primary Care Unavailable VERHOFFCHRISTIANO Attending Unavailable AICHHOLZ, MELONY J Referring Unavailable AICHHOLZ, MELONY J Primary Care Unavailable AICHHOLZ, MELONY J Referring Unavailable AICHHOLZ, MELONY J Primary Care Unavailable AICHHOLZ, MELONY J Referring Unavailable AICHHOLZ, MELONY J Primary Care Unavailable VERHOFF, CHRISTIANO N Attending Unavailable MELONY MONTALVO J Referring Unavailable AICSOHA MORAA J Primary Care Unavailable CHRISTIANO QUINTANA Attending Unavailable CHRISTIANO QUINTANA Referring Unavailable MELONY MONTALVO Primary Care Unavailable MELONY MONTALVO J Referring Unavailable SOHA MONTALVOA J Primary Care Unavailable Jovanny Mauricio MD Unavailable Jovanny Mauricio MD Primary Care Provider Katia TUBING TESTER, Melony Unavailable Unavailable Primary Care Provider Unavailabl e AICHHOLZ, MELONY Attending Unavailable AICHHOLZ, MELONY Attending Unavailable AICHHOLZ, MELONY Attending Unavailable AICHHOLZ, MELONY Attending Unavailable AICHHOLZ, MELONY Attending Unavailable SABRA VALADEZ Attending Unavailable AICHHOLZ, MELONY Attending Unavailable FALLON VARNER Attending Unavailable Allergies Allergy Classification Reported Allergen(s) Allergy Type Date of Onset Reaction(s) Facility (2 sources) Penicillin G Benzathine Drug allergy rash Blanch [employer] Other (4 sources) Penicillins; Translations: [PENICILLINS] Propensity to adverse reactions to drug 7 [facility] [employer] (11 sources) Penicillins Propensity to adverse reactions 4 Sw[facility] Healthcare Medications Current Medications Medication Drug Class(es) [...] mg / cholecalciferol 125 unt oral tablet (14 sources) Vitamin D take 1 tablet by [...] Active cetirizine hydrochloride 10 mg oral tablet (9 sources) Histamine-1 Receptor Antagonist Start: 02-29-2024 End: 05-29-2024 take 1 tablet by mouth once daily cetirizine (ZyrTEC) 10 MG tablet Indications: Contact dermatitis due to plant Take 1 tablet (10 mg) by mouth Daily for 15 days 15 tablet 02/29/2024 05/29/2024 Discontinued (Therapy completed) diclofenac sodium 0.01 mg/mg topical gel (2 sources) Nonsteroidal Anti-inflammator y Drug Voltaren 1 % Externally Active hydroCHLOROthiazide (1 source) Thiazide Diuretic hydroCHLOROthiazide Active meloxicam 15 mg oral tablet (10 sources) Nonsteroidal Anti-inflammator y Drug End: 05-29-2024 take 1 tablet by mouth once daily meloxicam (Mobic) 15 MG tablet Take 15 mg by mouth Daily 05/29/2024 Discontinued (Therapy completed) take 1 tablet by ida th every twenty-four hours Meloxicam 7.5 MG 1 tablet Orally Once a day Not-Taking NON FORMULARY (3 sources) take 1 dose by mouth once daily in the morning NON FORMULARY Take 1 each by mouth in the morning. Med Name: Cartigen 500 mg daily . 0 Active Mcintosh 3-6-9 Complex - (1 source) Mcintosh 3-6-9 Comp eileen - as directed Orally Active omeprazole 40 mg delayed release oral capsule (14 sources) Proton Pump Inhibitor Start: 11-28-19 take 1 capsule by mouth before mealtime omeprazole (PriLOSEC) [address] capsule Indications: Gastroesophageal reflux disease without esophagitis Take 1 capsule (40 mg) by mouth in the morning. Take before meals. Do not crush or chew.. 90 capsule 1 11/28/2023 Active Start: 05-06-2021 take 1 capsule by mo uth once daily omeprazole (PriLOSEC) 40 mg capsule [...] 100 ml zoledronic acid 0.05 mg/ml injection (11 sources) Bisphosphonate zoledronic acid (Reclast) 5 MG/100ML [...] Problem Date Documented Date Episodic/Chronic Allergic reactions (11 sources) Contact dermatitis due to plants; Translations: [Unspecified contact dermatitis due to plants, except food] Onset: 02-29-2024 02-29-2024 Episodic Cataract (17 sources) Nuclear sclerotic cataract; Translations: [Age-related nuclear cataract, left eye] Onset: 06-11-2017 Resolved: 07-09-2017 07-09-2017 Chronic Deficiency and other anemia (1 source) Iron deficiency anemia, unspecified; Translations: [Iron deficiency anemia, unspecified] Onset: 10-11-2023 Episodic Disorders of lipid metabolism (13 sources) Hyperlipidemia, unspecified; Translations: [Mixed hyperlipidemia] Onset: 09-28-2023 09-28-2023 Chronic Esophageal disorders (14 sources) Gastro-esophageal reflux disease without esophagitis; Translations: [Gastroesophageal reflux disease without esophagitis] Onset: 09-28-2023 09-28-2023 Chronic Essential hypertension (14 sources) Essential (primary) hypertension; Translations: [Benign essential hypertension] Onset: 09-28-2023 09-28-2023 Chronic Headache; including migraine (1 source) Headache; including migraine; Translations: [HEADACHE UNSPECIFIED] Onset: 03-27-2021 Osteoarthritis (12 sources) Primary osteoarthritis, right hand; Translations: [Osteoarthritis of joint of right hand] Onset: 10-04-2023 11-28-2023 Chronic Osteoporosis (12 sources) Age-related osteoporosis without current pathological fracture; Translations: [Postmenopausal osteoporosis] Onset: 09-28-2023 11-28-2023 Chronic Other aftercare (4 sources) Other termite control servicer (current) drug therapy; Translations: [OTH KINESEOLOGIST CURRENT DRUG THERAPY] Onset: 01-14-2022 Episodic Other aftercare (3 sources) H/O: high risk medication; Translations: [Other termite control servicer (current) drug therapy] 04-04-2024 Episodic Other connective tissue disease (1 source) Hand pain Onset: 10-04-2023 Episodic Other connective tissue disease (1 source) Pain in right finger(s); Translations: [Pain in right finger(s)] Onset: 08-30-2023 Episodic Other ear and sense organ disorders (8 sources) Bilateral hearing loss; Translations: [Unspecified hearing loss, bilateral] Onset: 05-29-2024 05-29-2024 Chronic Other injuries and conditions due to external causes (1 source) Injury, unspecified, initial encounter Episodic Other nervous system disorders (2 sources) Chronic pain; Translations: [Other chronic pain] Chronic Other nervous system disorders (11 sources) Difficulty walking; Translations: [Difficulty in walking, not elsewhere classified] Onset: 09-28-2023 09-28-2023 Chronic Other nervous system disorders (6 sources) Impaired cognition; Translations: [Other symptoms and signs involving cognitive functions and awareness] 05-29-2024 Episodic Other non-traumatic joint disorders (11 sources) Derangement of right shoulder joint; Translations: [Other specific joint derangements of right shoulder, not elsewhere classified] Onset: 09-28-2023 09-28-2023 Chronic Other nutritional; endocrine; and metabolic disorders (13 sources) Obese class I; Translations: [Obesity (BMI 30.0-34.9)] Onset: 06-28-2023 06-28-2023 Chronic Peripheral and visceral atherosclerosis (13 sources) Atherosclerosis of aorta; Translations: [Atherosclerosis of aorta] Onset: 02-29-2024 02-29-2024 Chronic Residual codes; unclassified (3 sources) Amnesia; Translations: [Other amnesia] 04-04-2024 Episodic Residual codes; unclassified (13 sources) Memory impairment; Translations: [Other amnesia] Onset: [...] Da te Episodic/Chronic Deficiency and other anemia (11 sources) Iron deficiency anemia; Translations: [Iron deficiency anemia, unspecified] Onset: 09-28-2023 09-28-2023 Episodic Gastritis and duodenitis (4 sources) Gastritis, unspecified, without bleeding; Translations: [GASTRITIS UNS WITHOUT BLEEDING] Onset: 03-11-2021 Episodic Headache; including migraine (11 sources) Headache disorder; Translations: [Other headache syndrome] Onset: 06-28-2023 06-28-2023 Episodic Malaise and fatigue (1 source) Other fatigue Onset: 12-09-2021 Resolved: 12-09-2021 Episodic Mood disorders (11 sources) Mood disorders Onset: 11-28-2023 11-28-2023 Mycoses (11 sources) Candidal intertrigo; Translations: [Candidiasis of skin and nail] Onset: 09-28-2023 09-28-2023 Episodic Nausea and vomiting (1 source) Nausea; Translations: [NAUSEA] Onset: 03-27-2021 Episodic Nutritional deficiencies (12 sources) Deficiency of other specified B group vitamins; Translations: [Vitamin B12 deficiency (non anemic)] Onset: 09-28-2023 09-28-2023 Episodic Other circulatory disease (11 sources) Elevated blood pressure; Translations: [Elevated blood-pressure reading, without diagnosis of hypertension] Onset: 06-28-2023 Resolved: 09-28-2023 09-28-2023 Episodic Other connective tissue disease (15 sources) Pain in finger; Translations: [Pain in right finger(s)] Onset: 08-30-2023 08-30-2023 Episodic Other connective tissue disease (11 sources) Nontraumatic complete rupture of rotator cuff of right shoulder; Translations: [Complete rotator cuff tear or rupture of right shoulder, not specified as traumatic] Onset: 09-28-2023 09-28-2023 Episodic Other ear and sense organ disorders (11 sources) Otalgia, right ear; Translations: [Otalgia, unspecified] Onset: 09-28-2023 Resolved: 05-29-2024 09-28-2023 Episodic Other screening for suspected conditions (not mental disorders or infectious disease) (12 sources) Encounter for screening mammogram for malignant neoplasm of breast; Translations: [Patient encounter status] Onset: 09-28-2023 09-28-2023 Episodic Residual codes; unclassified (11 sources) Edema of lower extremity; Translations: [Localized edema] Onset: 09-28-2023 09-28-2023 Episodic Residual codes; unclassified (11 sources) Family history of breast cancer; Translations: [Family history of malignant neoplasm of breast] Onset: 11-28-2023 11-28-2023 Episodic Results Test Name Value Interpretation Reference Range Facility [facility] CREATININEon 10-24-2024 Creatinine [Mass/Vol] 0.65 mg/dL 0.55 - 1.02 mg/dL [facility] GFR/1.73 sq M.predicted CKD-EPI (S/P/Bld) [Vol rate/Area] >60 >=60 mL/min/1.73m 2 [facility] EGFR-NON AF SLOVENIAN >60 >=60 mL/min/1.73m 2 [facility] Health[facility] e MAMM SCREENING BILATERAL W C player manager 10-16-2023 MAMM SCREENING BILATERAL W CAD MAMM [...] PM 1 c MAMM 1 YR Normal [facility] COMPREHENSIVE METABOLIC PANE Jeffry 10-11-2023 Albumin [Mass/Vol] 4.1 g/dL Normal 3.2-5.3 [facility] Comment on above: Performed By: #### 2 498-4, CMP, 2276-4, 41867-3, 2132-02, 23460-0 #### [facility] ([id number]) [address], [address] [place] [address] ALP [Catalytic activity/Vol] 53 U/L Normal 39-130 [facility] Comment on above: Performed By: #### 2 498-4, CMP, 2276-4, 03925-9, 9, 78151-0 #### [facility] ([id number]) [address], [address] [place] [address] ALT [Catalytic activity/Vol] 14 U/L Normal 0-31 [facility] Comment on above: Performed By: #### 2 498-4, CMP, 2276-4, 32193-6, 2131-9, 96039-8 #### [facility] ([id number]) [address], [address] [place] [address] Anion gap [Moles/Vol] 5 mmol/L Normal 5-15 [facility] Comment on above: Performed By: #### 2 498-4, CMP, 2276-4, 00775-2, 9, 11557-9 #### [facility] ([id number]) [address], [address] [place] [address] AST [Catalytic activity/Vol] 16 U/L Normal 0-41 [facility] Comment on above: Performed By: #### 2 498-4, CMP, 2276-4, 77583-2, 2132-02, 97251-4 #### [facility] ([id number]) [address], [address] [place] [address] Bilirubin [Mass/Vol] 0.4 mg/dL Normal 0.3-1.2 [facility] Comment on above: Performed By: #### 2 498-4, CMP, 2276-4, 94911-5, 2132-02, 60091-9 #### [facility] ([id number]) [address], [address] [place] [address] Calcium [Mass/Vol] 8.8 mg/dL Normal 8.5-10.5 [facility] Comment on above: Performed By: #### 2 498-4, CMP, 2276-4, 98730-9, 2131-9, 86314-3 #### [facility] ([id number]) [address], [address] [place] [address] Chloride [Moles/Vol] 108 mmol/L Normal 98-109 [facility] Comment on above: Performed By: #### 2 498-4, CMP, 2276-4, 11781-3, 9, 00929-1 #### [facility] ([id number]) [address], [address] [place] [address] CO2 [Moles/Vol] 28 mmol/L Normal 22-32 [facility] Comment on above: Performed By: #### 2 498-4, CMP, 2276-4, 35773-5, 9, 23042-6 #### [facility] ([id number]) [address], [address] [place] [address] Creatinine [Mass/Vol] 0.54 mg/dL Normal 0.40-1.00 [facility] Comment on above: Result Comment: METH OD TRACEABLE TO IDMS STANDARD Performed By: #### 2 498-4, CMP, 2276-4, 09423-6, 2132-02, 91488-6 #### [facility] ([id number]) [address], [address] [place] [address] eGFR (CKD-EPI) NON-RACE DEPENDENT >90 Normal >59 [facility] Comment on above: Result Comment: Reported eGFR is based on the CKD-EPI 2020 equation that does not use a race coefficient. Performed By: #### 2 498-4, CMP, 2276-4, 19666-5, 2132-02, 08462-6 #### [facility] ([id number]) [address], [address] [place] [address] Glucose [Mass/Vol] 91 mg/dL Normal 65-99 [facility] Comment on above: Performed By: #### 2 498-4, CMP, 2276-4, 40944-5, 9, 56917-4 #### [facility] ([id number]) [address], [address] [place] [address] Potassium [Moles/Vol] 3.8 mmol/L Normal 3.5-5.0 [facility] Comment on above: Performed By: #### 2 498-4, CMP, 2276-4, 21261-0, 9, 49165-9 #### [facility] ([id number]) [address], [address] [place] [address] Protein [Mass/Vol] 6.9 g/dL Normal 6.0-8.0 [facility] Comment on above: Performed By: #### 2 498-4, CMP, 2276-4, 35012-4, 2132-02, 11115-6 #### [facility] ([id number]) [address], [address] [place] [address] Sodium [Moles/Vol] 141 mmol/L Normal 134-146 [facility] Comment on above: Performed By: #### 2 498-4, CMP, 2276-4, 64194-2, 2132-02, 37831-8 #### [facility] ([id number]) [address], [address] [place] [address] Urea nitrogen [Mass/Vol] 14 mg/dL Normal 5-27 [facility] Comment on above: Performed By: #### 2 498-4, CMP, 2276-4, 89609-9, 2132-02, 43379-9 #### [facility] ([id number]) [address], [address] [place] [address] FERRITINon 10-11-2023 Ferritin [Mass/Vol] 156 ng/mL Normal 11-307 [facility] Comment on above: Performed By: #### 2 498-4, CMP, 2276-4, 53461-9, 9, 68700-6 #### [facility] ([id number]) [address], [address] [place] [address] IRONon 10-11-2023 Iron [Mass/Vol] 114 ug/dL Normal 50-170 [facility] Comment on above: Performed By: #### 2 498-4, CMP, 2276-4, 78336-3, 9, 64495-6 #### [facility] ([id number]) [address], [address] [place] [address] Lipid 1996 panelon 4 Cholesterol [Mass/Vol] 206 mg/dL High 150-200 [facility] Comment on above: Performed By: #### 2 498-4, CMP, 2276-4, 96095-9, 9, 58859-9 #### [facility] ([id number]) [address], [address] [place] [address] Cholesterol in HDL [Mass/Vol] 57 mg/dL Normal >39 [facility] Comment on above: Result Comment: HDL <40 mg/dL - High Risk HDL > or = 40mg/dL- Desirable HDL >60 mg/dL - Negative Risk Performed By: #### 2 498-4, CMP, 2276-4, 36392-0, 2132-02, 89116-7 #### [facility] ([id number]) [address], [address] [place] [address] Cholesterol in LDL [Mass/Vol] 137 mg/dL High <130 [facility] Comment on above: Result Comment: LDL <100 mg/dL - Desirable LDL >160 mg/dL - High Risk Performed By: #### 2 498-4, CMP, 2276-4, 44006-5, 9, 18837-5 #### [facility] ([id number]) [address], [address] [place] [address] Cholesterol in VLDL [Mass/Vol] 12 mg/dL Normal 0-30 [facility] Comment on above: Performed By: #### 2 498-4, CMP, 2276-4, 44392-5, 2131-9, 13455-7 #### [facility] ([id number]) [address], [address] [place] [address] CHOLESTEROL:HDL 3.6 Normal 1.0-5.0 [facility] Comment on above: Performed By: #### 2 498-4, CMP, 2276-4, 30623-8, 2131-9, 73882-5 #### [facility] ([id number]) [address], [address] [place] [address] Triglyceride [Mass/Vol] 61 mg/dL Normal 27-150 [facility] Comment on above: Performed By: #### 2 498-4, CMP, 2276-4, 23039-5, 9, 92901-7 #### [facility] ([id number]) [address] [place] [address] MICROALBUMIN - ALBUMIN:CREAT ININE URINE RATIOon 10-11-2023 ALB/CREAT RATIO 10.2 mg/g creat Normal 0.0-30.0 [facility] Comment on above: Performed By: #### M ALBU #### [facility] ([id number]) [address], [address] [place] [address] Albumin DL <= 20 mg/L (U) [Mass/Vol] 1.5 mg/dL Normal 0.0-1.9 [facility] Comment on above: Performed By: #### M ALBU #### [facility] ([id number]) [address], [address] [place] [address] URINE CREAT 147.05 mg/dL Normal [facility] Comment on above: Performed By: #### M ALBU #### [facility] ([id number]) [address] [address] [facility] [address], [address] [place] [address] URINALYSISon 10-11-2023 Bilirubin Ql (U) Negative Normal NEG [facility] Comment on above: Performed By: #### M ALBU #### [facility] ([id number]) [address] [address] [address], [address] [place] [address] BLOOD/HGB Small Abnormal NEG [facility] Comment on above: Performed By: #### M ALBU #### [facility] ([id number]) [address] [address] [facility], [address] [place] [address] Color (U) YELLOW Normal YELLOW [facility] Comment on above: Performed By: #### M ALBU #### [facility] ([id number]) [address], [address] [place] [address] Glucose Ql (U) Negative Normal NEG [facility] Comment on above: Performed By: #### M ALBU #### [facility] ([id number]) [address] [facility], [address] [place] [address] Ketones Ql (U) Negative Normal NEG [facility] Comment on above: Performed By: #### M ALBU #### [facility] ([id number]) [address] [place] [address] Leukocyte esterase Test strip Ql (U) Negative Normal NEG [facility] Comment on above: Performed By: #### M ALBU #### [facility] ([id number]) [address] [facility], [address] [place] [address] MUCOUS PRESENT Abnormal NONE [facility] Comment on above: Performed By: #### M ALBU #### [facility] ([id number]) [address] [facility] [facility] [address], [address] [place] [address] Nitrite Ql (U) Negative Normal NEG [facility] Comment on above: Performed By: #### M ALBU #### [facility] ([id number]) [address], [address] [place] [address] pH (U) 6.0 [pH] Normal 5.0-8.5 [facility] Comment on above: Performed By: #### M ALBU #### [facility] ([id number]) [address] [facility], [address] [place] [address] Protein Ql (U) Negative Normal NEG [facility] Comment on above: Performed By: #### M ALBU #### [facility] ([id number]) [address] [facility], [address] [place] [address] R.B.CELLS 0 /hpf Normal 0-5 [facility] Comment on above: Performed By: #### M ALBU #### [facility] ([id number]) [address] [facility], [address] [place] [address] Specific gravity (U) [Rel density] 1.021 Normal 1.003-1.035 [facility] Comment on above: Performed By: #### M ALBU #### [facility] ([id number]) [address] [facility] [facility] [address], [address] [place] [address] SQUAMOUS EPITHELIUM 1 /hpf Normal 0-5 [facility] Comment on above: Performed By: #### M ALBU #### [facility] ([id number]) [address], [address] [place] [address] TURBIDITY CLEAR Normal CLEAR [facility] Comment on above: Performed By: #### M ALBU #### [facility] ([id number]) [address] [facility], [address] [place] [address] Urobilinogen (U) [Mass/Vol] mg/dL Normal <1.1 [facility] Comment on above: Performed By: #### M ALBU #### [facility] ([id number]) [address], [address] [place] [address] W.B.CELLS 1 /hpf Normal 0-5 [facility] Comment on above: Performed By: #### Karyn BATES #### [facility] ([id number]) [address], [address] [place] [address] VITAMIN B12on 10-11-2023 Cobalamin (Vitamin B12) [Mass/Vol] 325 pg/mL Normal 180-914 [facility] Comment on above: Performed By: #### 2 498-4, CMP, 2276-4, 63849-6, 2132-02, 22305-8 #### [facility] ([id number]) [address], [address] [place] [address] Vitamin D+Metabolites [Mass/ Vol]on 10-11-2023 VITAMIN D 25 HYD TOT 23.6 ng/mL Low 30-100 [facility] Comment on above: Result Comment: Vitamin D status 25 [place] Vitamin D Deficiency <20 ng/mL Insufficiency 20-29 ng/mL Sufficiency 30-100 ng/mL Toxicity >100 ng/mL NOTE: A pediatric reference range has not been established by the audio visual specialist of this kit. The [place] [employer] recommends a Vitamin D level of = or >20ng/mL in infants and children. Performed By: #### 2 498-4, CMP, 2276-4, 07303-8, 2131-9, 60103-8 ####[facility] ([id number])[address], [place] [address] XR HAND RT MIN 3 VWSon 08-30 [...] Scott Chinchilla MD on 08/30/2023 11:44 PM Normal [facility] XR Hand - right 3 Viewson [...] Scott Chinchilla MD on 08/30/2023 11:44 [facility] Scott Chinchilla MD - 08/30/2023 RIGHT HAND [...] Scott Chinchilla MD on 08/30/2023 11:44 PM [facility] [facility] Radiology Study observation (narrative) [facility] XR Hand - right 3 ViewsOrder ed By: Scott Chinchilla on 08-30-2023 [facility] Work Phone: MR LUMBAR SPINE WO [...] Shay Simon MD on 08/17/2023 11:40 AM [facility] XR SPINE LUMBAR 2 OR 3 [...] Aviles MD on 06/30/2023 10:22 AM Normal [facility] DEN Antinuclear Antibodieson 12-13-2022 Antinuclear Abs, IFA Negative Normal . [facility] Comment on above: Result Comment: Nega tive <1:80 Borderline 1:80 Positive >1:80 ICAP nomenclature: AC-0 For more information about Hep-2 cell patterns use ANApatterns.org, the official website for the International Consensus on Antinuclear Antibody (DEN) Patterns (ICAP). Performed at: [facility] [address] [id number] Digital Archivist: Gregg Moreno PhD, Phone: [phone] PERFORMED BY: [place] [address] PATHOLOGIST HOG STICKER MIKHAIL IVERSON M.D. Performed By: #### C K, ESR, CRP #### [address] #### DEN #### [facility] , C reactive protein [Mass/vol ume] in Serum or PlasmaOrdered By: Hill Foreman on 12-13-2022 CRP [Mass/Vol] < 0.5 mg/dL 0.0-0.5 [facility] C-Reactive Proteinon 023 CRP [Mass/Vol] mg/L Normal 0.0-0.5 [facility] Comment on above: Result Comment: PERF ORMED BY: [place] [address] PATHOLOGIST HOG STICKER MIKHAIL IVERSON M.D. Performed By: #### C K, ESR, CRP #### [place] [address] [place] #### DEN #### [facility] , Creatine Kinaseon 12-13-2022 CK [Catalytic activity/Vol] 71 U/L Normal [facility] Comment on above: Result Comment: PERF ORMED BY: [place] [address] PATHOLOGIST HOG STICKER MIKHAIL IVERSON M.D. Performed By: #### C K, ESR, CRP #### [address] #### DEN #### [facility] , Creatine kinase [Enzymatic a ctivity/volume] in Serum or PlasmaOrdered By: Hill Foreman on 12-13-2022 CK [Catalytic activity/Vol] 71 U/L [facility] Erythrocyte Sedimentation Ra dmitry 12-13-2022 ESR (Bld) [Velocity] 16 mm/h Normal 0-29 [facility] Comment on above: Result Comment: PERF ORMED BY: [place] [address] PATHOLOGIST HOG STICKER MIKHAIL IVERSON M.D. Performed By: #### C K, ESR, CRP #### [place] [address] [place] #### DEN #### [facility] , Erythrocyte sedimentation ra te by Photometric methodOrdered By: Hill Foreman on 12-13-2022 ESR Photometric method (Bld) [Velocity] 16 mm/hr 0-29 [facility] XR hand BI 2Von 12-13-2022 XR hand BI 2V [facility] Main [place] [address] [place] [address] XRay Report Signed Patient: Emily Aguirre MR#: [id number] : 1955 Acct:[id number] Age/Sex: 67 / F ADM Date: 12/13/22 Loc: ICXD Room: Type: [facility] CLI Attending Dr: Hill Foreman MD Copies to: [...] BONY EROSIONS. Impression dictated by: Sukhdeep Marquez Jr., DNydiaONydia12/13/2022 3:48 PM Dictation Location: [place] [address] Transcribed By: [facility] 12/13/22 1548 Dictated By: Sukhdeep Marquez Jr, DO 12/13/22 1547 Signed By: 12/13/22 1548 Normal [facility] XR knee LT 4V*on 10-23-2022 XR knee LT 4V* [facility] [place] [address] XRay Report Signed Patient: Emily Aguirre MR#: [id number] : 1955 Acct:[id number] Age/Sex: 67 / F ADM Date: 10/23/22 Loc: XDUCLY Room: Type: [facility] CLI Attending Dr: Janay Elizalde APRN Copies to: Janay Elizalde APRN Ordering Provider: [...] Cedric Saldana M.D.10/23/2022 12:55 PM Dictation Location: [place] [address] Transcribed By: [facility] 10/23/22 1255 Dictated By: Cedric Saldana DO 10/23/22 1252 Signed By: 10/23/22 1255 Normal [facility] XR knee LT 4V* [facility] [employer] Other XR knee LT 4V* [facility] [employer] Other XR knee LT 4V* [address] [place] [address] [employer] Other XR knee LT 4V* [place] [address] No rt [employer] Other XR knee LT 4V* XRay Report [employer] Other XR knee LT 4V* Signed [address] Other XR knee LT 4V* Patient: Stone Aguirre MR#: [id number] [employer] Other XR knee LT 4V* : 1955 Acct:[id number] [employer] Other XR knee LT 4V* Age/Sex: 67 / F ADM Date: 10/23/22 [employer] Other XR knee LT 4V* Loc: XDUCLY Room: Type: [facility] [employer] Other XR knee LT 4V* Attending Dr: Janay Elizalde [facility] [employer] Other XR knee LT 4V* Copies to: Janay Elizalde APRN [employer] Other XR knee LT 4V* Ordering Provider: Janay Elizalde APRN [employer] Other XR knee LT 4V* Date of Service: 10/23/22 [employer] Other XR knee LT 4V* XR/XR knee LT 4V*: Injury [employer] Other XR knee LT 4V* 4 views left knee plain film [employer] Other XR knee LT 4V* COMPARISON: 05/01/2018 [employer] Other XR knee LT 4V* HISTORY: Fell injuri ng left knee [employer] Other XR knee LT 4V* ACUTE FINDINGS: None [employer] Other XR knee LT 4V* DEGENERATIVE CHANGE: Superior patellar enthesophyte. [employer] Other XR knee LT 4V* SOFT TISSUE FINDINGS : Unremarkable [employer] Other XR knee LT 4V* JOINT EFFUSION: None [employer] Other XR knee LT 4V* POSTOP CHANGES: None [employer] Other XR knee LT 4V* BONE MINERALIZATION: Adequate [employer] Other XR knee LT 4V* XR/XR knee LT 4V* [employer] Other XR knee LT 4V* IMPRESSION: No acute findings [employer] Other XR knee LT 4V* Impression dictated by: Cedric Saldana M.D.10/23/2022 12:55 PM [employer] Other XR knee LT 4V* Dictation Location: [facility]- [employer] Other XR knee LT 4V* Transcribed By: LEIDA 10/23/22 1255 [employer] Other XR knee LT 4V* Dictated By: Cedric Saldana DO 10/23/22 1252 [employer] Other XR knee LT 4V* Signed By: [employer] Other XR knee LT 4V* 10/23/22 1255 [employer] Other PROF CHEM 8 (BAS METB)on Anion gap [Moles/Vol] 10.3 mmol/L Normal [facility] Comment on above: Performed By: #### B MP #### [facility] [address] [place] [address] [address] Eric Rendon Calcium [Mass/Vol] 9.1 mg/dL Normal 8.5-10.1 [facility] Comment on above: Performed By: #### B MP #### [facility] [address] [place] [address] [address] Eric Rendon Chloride [Moles/Vol] 108 mmol/L Critically high 98-107 [facility] Comment on above: Performed By: #### B MP #### [facility] [address] [place] [address] [address] Eric Rendon CO2 [Moles/Vol] 27.0 mmol/L Normal 21.0-32.0 [facility] Comment on above: Performed By: #### B MP #### [facility] [address] [place] [address] [address] Eric Rendon Creatinine [Mass/Vol] 0.61 mg/dL Normal 0.55-1.02 [facility] Comment on above: Performed By: #### B MP #### [facility] [address] [place] [address] [address] Eric Rendon EGFR-AF SLOVENIAN >60 Normal >=60 [facility] Comment on above: Performed By: #### B MP #### [facility] [address] [place] [address] [address] Eric Rendon EGFR-NON AF SLOVENIAN >60 Normal >=60 [facility] Comment on above: Performed By: #### B MP #### [facility] [address] [place] [address] [address] Eric Rendon Glucose [Mass/Vol] 95 mg/dL Normal 74-106 [facility] Comment on above: Performed By: #### B MP #### [facility] [address] [place] [address] Dr. Eric Rendon Potassium [Moles/Vol] 4.3 mmol/L Normal 3.5-5.1 [facility] Comment on above: Performed By: #### B MP #### [facility] [address] [place] [address] Dr. Eric Rendon Sodium [Moles/Vol] 141 mmol/L Normal 136-145 [facility] Comment on above: Performed By: #### B MP #### [facility] [address] [place] [address] Dr. Eric Rendon Urea nitrogen [Mass/Vol] 14.0 mg/dL Normal 7.0-18.0 [facility] Comment on above: Performed By: #### B MP #### [facility] [address] [place] [address] Dr. Eric Rendon Urea nitrogen/Creatinin e [Mass ratio] 23.0 mg/mg Normal [facility] Comment on above: Performed By: #### B MP #### [facility] [address] [place] [address] Dr. Eric Rendon COVID Quick Testingon 2021 Result Negative [employer] Other CBC AUTO DIFFon 03-11-2021 BASO # 0.1 103/ul Normal 0.0-0.1 [facility] Comment on above: Performed By: #### C BC #### [facility] [address] [place] [address] Dr. Eric Rendon Basophils/100 WBC (Bld) 0.9 % Normal 0.2-2.0 [facility] Comment on above: Performed By: #### C BC #### [facility] [address] [place] [address] Dr. Eric Rendon EO # 0.1 103/ul Normal 0.0-0.7 [facility] Comment on above: Performed By: #### C BC #### [facility] [address] [place] [address] Dr. Eric Rendon Eosinophils/100 WBC (Bld) 1.1 % Normal 0.9-7.0 [facility] Comment on above: Performed By: #### C BC #### [facility] [address] [place] [address] Dr. Eric Rendon Erythrocyte distribution width (RBC) [Ratio] 13.4 % Normal 11.0-15.0 [facility] Comment on above: Performed By: #### C BC #### [facility] [address] [place] [address] Dr. Eric Rendon Hematocrit (Bld) [Volume fraction] 36.5 % Normal 36.0-48.0 [facility] Comment on above: Performed By: #### C BC #### [facility] [address] [place] [address] Dr. Eric Rendon Hemoglobin (Bld) [Mass/Vol] 11.7 g/dL Critically low 12.0-16.0 [facility] Comment on above: Performed By: #### C BC #### [facility] [address] [place] [address] Dr. Eric Rendon IG # 0.04 10e3/ul Critically high 0.00-0.03 [facility] Comment on above: Performed By: #### C BC #### [facility] [address] [place] [address] Dr. Eric Rendon IG % 0.7 % Critically high 0.0-0.5 [facility] Comment on above: Performed By: #### C BC #### [facility] [address] [place] [address] Dr. Eric Rendon LYMPH # 2.0 103/ul Normal 1.2-3.8 [facility] Comment on above: Performed By: #### C BC #### [facility] [address] [place] [address] Dr. Eric Rendon Lymphocytes/100 WBC (Bld) 34.6 % Normal 20.5-60.0 [facility] Comment on above: Performed By: #### C BC #### [facility] [address] [place] [address] Dr. Eric Rendon MANUAL DIFF REQ NO Normal [facility] Comment on above: Performed By: #### C BC #### [facility] [address] [place] [address] Dr. Eric Rendon MCH (RBC) [Entitic mass] 30.2 pg Normal 26.7-34.0 [facility] Comment on above: Performed By: #### C BC #### [facility] [address] [place] [address] Dr. Eric Rendon MCHC (RBC) [Mass/Vol] 32.1 g/dL Normal 29.9-35.2 [facility] Comment on above: Performed By: #### C BC #### [facility] [address] [place] [address] Dr. Eric Rendon MCV (RBC) [Entitic vol] 94.3 fL Normal 81.0-99.0 [facility] Comment on above: Performed By: #### C BC #### [facility] [address] [place] [address] Dr. Eric Rendon MONO # 0.5 103/ul Normal 0.3-0.8 [facility] Comment on above: Performed By: #### C BC #### [facility] [address] [place] [address] Dr. Eric Rendon Monocytes/100 WBC (Bld) 7.9 % Normal 1.7-12.0 [facility] Comment on above: Performed By: #### C BC #### [facility] [address] [place] [address] Dr. Eric Rendon NEUT # 3.1 103/ul Normal 1.4-6.5 [facility] Comment on above: Performed By: #### C BC #### [facility] [address] [place] [address] Dr. Eric Rendon Neutrophils/100 WBC (Bld) 54.8 % Normal 43.0-75.0 [facility] Comment on above: Performed By: #### C BC #### [facility] [address] [place] [address] [address] Eric Rendon Platelet mean volume (Bld) [Entitic vol] 10.9 fL Normal 9.5-13.5 [facility] Comment on above: Performed By: #### C BC #### [facility] [address] [place] [address] Dr. Eric Rendon PLT 247 103/ul Normal 150-450 [facility] Comment on above: Performed By: #### C BC #### [facility] [address] [place] [address] [address] Eric Rendon RBC 3.87 106/ul Critically low 4.20-5.40 [facility] Comment on above: Performed By: #### C BC #### [facility] [address] [place] [address] Dr. Eric Rendon WBC 5.7 103/ul Normal 4.0-11.0 [facility] Comment on above: Performed By: #### C BC #### [facility] [address] [place] [address] Dr. Eric Rendon PROF 14(COMP METB)on 021 Albumin [Mass/Vol] 3.5 g/dL Normal 3.5-5.0 [facility] Comment on above: Performed By: #### T 4, TSH, CMP #### [facility] [address] [place] [address] Dr. Eric Rendon Albumin/Globulin [Mass ratio] 1.1 {ratio} Normal [facility] Comment on above: Performed By: #### T 4, TSH, CMP #### [facility] [address] [place] [address] Dr. Eric Rendon ALP [Catalytic activity/Vol] 55 U/L Normal 38-126 [facility] Comment on above: Performed By: #### T 4, TSH, CMP #### [facility] [address] [place] [address] Dr. Eric Rendon ALT [Catalytic activity/Vol] 27 U/L Normal 9-52 [facility] Comment on above: Performed By: #### T 4, TSH, CMP #### [facility] [address] [place] [address] Dr. Eric Rendon Anion gap [Moles/Vol] 9.1 mmol/L Normal [facility] Comment on above: Performed By: #### T 4, TSH, CMP #### [facility] [address] [place] [address] Dr. Eric Rendon AST [Catalytic activity/Vol] 20 U/L Normal 14-36 [facility] Comment on above: Performed By: #### T 4, TSH, CMP #### [facility] [address] [place] [address] Dr. Eric Rendon Bilirubin [Mass/Vol] 0.2 mg/dL Normal 0.2-1.3 [facility] Comment on above: Performed By: #### T 4, TSH, CMP #### [facility] [address] [place] [address] Dr. Eric Rendon Calcium [Mass/Vol] 9.1 mg/dL Normal 8.4-10.2 [facility] Comment on above: Performed By: #### T 4, TSH, CMP #### [facility] [address] [place] [address] Dr. Eric Rendon Chloride [Moles/Vol] 105 mmol/L Normal 98-107 [facility] Comment on above: Performed By: #### T 4, TSH, CMP #### [facility] [address] [place] [address] Dr. Eric Rendon CO2 [Moles/Vol] 30.9 mmol/L Critically high 22.0-30.0 [facility] Comment on above: Performed By: #### T 4, TSH, CMP #### [facility] [address] [place] [address] Dr. Eric Rendon Creatinine [Mass/Vol] 0.68 mg/dL Normal 0.52-1.04 [facility] Comment on above: Performed By: #### T 4, TSH, CMP #### [facility] [address] [place] [address] Dr. Eric Rendon EGFR-AF SLOVENIAN >60 Normal >=60 [facility] Comment on above: Performed By: #### T 4, TSH, CMP #### [facility] [address] [place] [address] [address] Eric Rendon EGFR-NON AF SLOVENIAN >60 Normal >=60 [facility] Comment on above: Performed By: #### T 4, TSH, CMP #### [facility] [address] [address] [address] Eric Rendon Globulin (S) [Mass/Vol] 3.3 g/dL Normal [facility] Comment on above: Performed By: #### T 4, TSH, CMP #### [facility] [address] [address] [address] Eric Rendon Glucose [Mass/Vol] 101 mg/dL Normal 74-106 [facility] Comment on above: Performed By: #### T 4, TSH, CMP #### [facility] [address] [place] [address] Dr. Eric Rendon Potassium [Moles/Vol] 4.0 mmol/L Normal 3.4-5.0 [facility] Comment on above: Performed By: #### T 4, TSH, CMP #### [facility] [address] [place] [address] Dr. Eric Rendon Protein [Mass/Vol] 6.8 g/dL Normal 6.1-8.2 [facility] Comment on above: Performed By: #### T 4, TSH, CMP #### [facility] [address] [address] [address] Eric Rendon Sodium [Moles/Vol] 141 mmol/L Normal 137-145 [facility] Comment on above: Performed By: #### T 4, TSH, CMP #### [facility] [address] [address] [address] Eric Rendon Urea nitrogen [Mass/Vol] 13.0 mg/dL Normal 7.0-17.0 [facility] Comment on above: Performed By: #### T 4, TSH, CMP #### [facility] [address] [address] [address] Eric Rendon Urea nitrogen/Creatinin e [Mass ratio] 19.1 mg/mg Normal [facility] Comment on above: Performed By: #### T 4, TSH, CMP #### [facility] [address] [place] [address] Dr. Eric Rendon T4on 03-11-2021 T4 [Mass/Vol] 7.70 ug/dL Normal 5.53-11.00 [facility] Comment on above: Performed By: #### T 4, TSH, CMP #### [facility] [address] [place] [address] Dr. Eric Rendon TSHon 03-11-2021 TSH 2.392 uIU/mL Normal 0.470-4.680 [facility] Comment on above: Performed By: #### T 4, TSH, CMP #### [facility] [address] [place] [address] Dr. Eric Rendon TSH RANGE SEE BELOW Normal [facility] Comment on above: Result Comment: <0.3 4 UIU/ml HYPERTHYROID 0.34-5.60 UIU/ml EUTHYROID >5.60 UIU/ml HYPOTHYROID Performed By: #### T 4, TSH, CMP #### [facility] [address] [place] [address] Dr. Eric Rendon Coding Summary.on 04-27-2020 Coding Summary. CODING DATE: 04/27/2020 [facility] STATUS: Home (Routine DC) PAYOR: Self Pay [...] CphT Date Saved: 04/27/2020 09:35 am Normal [facility] SARS-CoV-2, NAAon 04-18-2020 SARS CORONAVIRUS 2 RNA:PRTHR:PT:RESPI RATORY:ORD:PROBE.A MP.TAR Not Detected Not Detected [facility] Comment on above: Result Comment: This nucleic acid amplification test was developed and its performance characteristics determined by [facility]. Nucleic acid amplification tests include PCR and [...] detected) result in this assay. Performed at: [facility] [address] [place], [place] [id number] [facility] Gregorio Lizama Performed By: #### S ARS-CoV-2, BRITTANY #### [facility] [address] [place] [address] Physician Orderon 04-15-2020 Physician Order [id number] 0CD:127 Normal [facility] Vital Signs Date Time Vital Sign Value Performing Clinician Facility 05-29-2024 11:16050 Body height 162.6 cm Fallon Varner NP Work Phone: [facility] 05-29-2024 11:16-050 Body mass index (BMI) [Ratio] 31.11 kg/m2 Fallon Varner [employer] Work Phone: [facility] 05-29-2024 11:16-050 Body weight 82.21 kg Fallon Varner [employer] Work Phone: [facility] 05-29-2024 11:16-050 Diastolic blood pressure 80 mm[Hg] Fallon Varner [employer] Work Phone: [facility] 05-29-2024 11:16-0500 Heart rate 77 /min Fallon Varner [employer] Work Phone: [facility] 05-29-2024 11:16-0500 SaO2% (BldA) [Mass fraction] 96 % Fallon Varner [employer] Work Phone: [facility] 05-29-2024 11:16-0500 Systolic blood pressure 131 mm[Hg] Fallon Varner [employer] Work Phone: [facility] 05-29-2024 09:46-0500 Body height 157.5 cm Melony Aichholz [employer] Work Phone: [facility] 05-29-2024 09:46-0500 Body mass index (BMI) [Ratio] 33 kg/m2 Melony Aichholz [employer] Work Phone: [facility] 05-29-2024 09:46-0500 Body temperature 98.29 [degF] Melony Aichholz [employer] Work Phone: [facility] 05-29-2024 09:46-0500 Body weight 81.83 kg Melony Aichholz [employer] Work Phone: [facility] 05-29-2024 09:46-0500 Diastolic blood pressure 80 mm[Hg] Melony Aichholz [employer] Work Phone: [facility] 05-29-2024 09:46-0500 Heart rate 74 /min Melony Aichholz [employer] Work Phone: [facility] 05-29-2024 09:46-0500 Respiratory rate 19 /min Melony Aichholz [employer] Work Phone: [facility] 05-29-2024 09:46-0500 SaO2% (BldA) [Mass fraction] 99 % Melony Aichholz [employer] Work Phone: [facility] 05-29-2024 09:46-0500 Systolic blood pressure 128 mm[Hg] Melony Aichholz [employer] Work Phone: [facility] 04-04-2024 11:42-0400 Body mass index (BMI) [Ratio] 33.14 kg/m2 Christopher Rory DO Work Phone: [facility] 04-04-2024 11:42-0400 Body weight 82.19 kg Christopher Rory DO Work Phone: [facility] 04-04-2024 11:42-0400 Diastolic blood pressure 86 mm[Hg] Christopher Rory DO Work Phone: [facility] 04-04-2024 11:42-0400 Heart rate 84 /min Christopher Rory DO Work Phone: [facility] 04-04-2024 11:42-0400 SaO2% (BldA) [Mass fraction] 96 % Christopher Rory DO Work Phone: [facility] 04-04-2024 11:42-0400 Systolic blood pressure 150 mm[Hg] Christopher Rory DO Work Phone: [facility] 08-30-2023 09:10-0500 Diastolic blood pressure 88 mm[Hg] Christiano Verhoff PA-C Work Phone: [facility] 08-30-2023 09:10-0500 Heart rate 85 /min Christiano Verhoff PA-C Work Phone: [facility] 08-30-2023 09:10-0500 Respiratory rate 18 /min Christiano Verhoff PA-C Work Phone: [facility] 08-30-2023 09:10-0500 SaO2% (BldA) [Mass fraction] 96 % Christiano Verhoff PA-C Work Phone: [facility] 08-30-2023 09:10-0500 Systolic blood pressure 153 mm[Hg] Christiano Verhoff PA-C Work Phone: [facility] 07-19-2023 10:30-0500 Body height 157.5 cm Christiano Verhoff PA-C Work Phone: [facility] 07-19-2023 10:30-0500 Body mass index (BMI) [Ratio] 32.01 kg/m2 Christiano Verhoff PA-C Work Phone: [facility] 07-19-2023 10:30-0500 Body weight 79.38 kg Christiano Verhoff PA-C Work Phone: [facility] 07-19-2023 10:30-0500 Diastolic blood pressure 80 mm[Hg] Christiano Verhoff PA-C Work Phone: [facility] 07-19-2023 10:30-0500 Heart rate 71 /min Christiano Verhoff PA-C Work Phone: [facility] 07-19-2023 10:30-0500 Respiratory rate 16 /min Christiano Verhoff PA-C Work Phone: [facility] 07-19-2023 10:30-0500 SaO2% (BldA) [Mass fraction] 99 % Christiano Verhoff PA-C Work Phone: [facility] 07-19-2023 10:30-0500 Systolic blood pressure 157 mm[Hg] Christiano Verhoff PA-C Work Phone: [facility] 10-23-2022 13:15-0400 Body height 160.02 cm Janay Elizalde Other [employer] Other 10-23-2022 13:15-0400 Body temperature 97.3 [degF] Janay Elizalde Other [employer] Other 10-23-2022 13:15-0400 Diastolic blood pressure 70 mm[Hg] Janay Elizalde Other [employer] Other 10-23-2022 13:15-0400 Respiratory rate 16 /min Janay Elizalde Other [employer] Other 10-23-2022 13:15-0400 SaO2% (BldA) [Mass fraction] 97 % Janay Elizalde Other [employer] Other 10-23-2022 13:15-0400 Systolic blood pressure 147 mm[Hg] Janay Tonio Other [employer] Other 12-09-2021 19:05-0400 Body height Faustina Willis Other [employer] Other 12-09-2021 19:05-0400 Body mass index (BMI) [Ratio] 33.83 kg/m2 Faustina Willis Other [employer] Other 12-09-2021 19:05-0400 Body temperature 97.7 [degF] Faustina Willis Other [employer] Other 12-09-2021 19:05-0400 Body weight 86.64 kg Faustina Willis Other [employer] Other 12-09-2021 19:05-0400 Respiratory rate 16 /min Faustina Willis Other [employer] Other 12-09-2021 19:05-0400 SaO2% (BldA) [Mass fraction] 98 % Faustina Willis Other [employer] Other Encounters Encounter Date Encounter Type Care Provider Facility Start: 05-30-2024 End: 05-30-2024 Transcribe Orders Fallon Varner [facility]ISTANT Work Phone: [facility] Referral [facility] Start: 05-29-2024 End: 05-29-2024 Bamboo flowsheet Melony Souzadameon TUBING TESTER Work Phone: [facility] Start: 05-29-2024 End: 05-29-2024 Bamboo flowsheet Melony Montalvo TUBING TESTER Work Phone: [facility] Start: 05-29-2024 End: 05-29-2024 Office outpatient visit 25 minutes Fallon Varner TUBING TESTER Work Phone: [facility] Comment on above: Cognitive impairment (Primary Dx) Start: 05-29-2024 End: 05-29-2024 ambulatory FALLON VARNER Not Available Start: 05-29-2024 End: 05-29-2024 ambulatory MELONY MONTALVO Not Available Start: 05-29-2024 End: 05-29-2024 Office outpatient visit 25 minutes Melony Montalvo TUBING TESTER Work Phone: [facility] Comment on above: Bilateral hearing lo ss, unspecified hearing loss type (Primary Dx); Essential hypertension, benign (CMS/HCC); Atherosclerosis of aorta (CMS/HCC); Gastroesophageal reflux disease without esophagitis; Obesity (BMI 30.0-34.9); Memory impairment of gradual onset Start: 04-18-2024 End: 04-18-2024 Clinisync Result Encounter Sabra Valadez DO Work Phone: [facility] Unsolicited Start: 04-18-2024 End: 04-18-2024 Clinisync Result Encounter Sabra Valadez DO Work Phone: [facility] Unsolicited Start: 04-18-2024 End: 04-18-2024 Orders Only Christopher Rory DO Work Phone: [facility] Comment on above: Memory loss (Primary Dx); Long-term use of high-risk medication Start: 04-16-2024 End: 04-16-2024 Bamboo flowschuckie Waldron PhD Work Phone: [facility] Start: 04-16-2024 End: 04-16-2024 Bamboo flowschuckie Waldron PhD Work Phone: [facility] Start: 04-04-2024 End: 04-04-2024 Bamboo flowsheet Krzysztofsfoía Valadez DO Work Phone: [facility] Start: 04-04-2024 End: 04-04-2024 Bamboo flowsheet Sabra Valadez DO Work Phone: [facility] Start: 04-04-2024 End: 04-04-2024 Office outpatient new 45 minutes Sabra Valadez DO Work Phone: [facility] Comment on above: Memory loss (Primary Dx); Long-term use of high-risk medication Start: 04-04-2024 End: 04-04-2024 ambulatory SABRA VALADEZ Not Available Start: 02-29-2024 End: 02-29-2024 ambulatory MELONY AICHHOLZ Not Available Start: 11-28-2023 Patient encounter procedure Sabra Valadez DO Work Phone: [facility] Start: 11-28-2023 End: 11-28-2023 ambulatory MELONY AICHHOLZ Not Available Start: 10-16-2023 End: 10-17-[address] [facility] Start: 10-11-2023 End: 10-12-2023 ambulatory MELONY J [facility] Start: 10-04-2023 End: 10-04-2023 ambulatory [facility] Start: 09-28-2023 End: 09-28-2023 ambulatory MELONY AICHHOLZ Not Available Start: 09-25-2023 End: 10-25-2023 ambulatory [facility] Start: 09-05-2023 Telephone encounter Jojo Gao RN [facility] Start: 09-05-2023 End: 09-25-2023 ambulatory [facility] Start: 08-30-2023 End: 08-31-2023 ambulatory [facility] Start: 08-30-2023 End: 08-30-2023 ambulatory [facility] Start: 08-30-2023 End: 08-30-2023 Office outpatient visit 25 minutes Tomas PRAJAPATI Work Phone: [facility] Comment on above: Lumbar spondylosis ( Primary Dx); Spinal stenosis of lumbar region with neurogenic claudication; Pain of right middle finger Start: 08-15-2023 End: 08-16-2023 ambulatory [facility] Start: 07-19-2023 End: 07-19-2023 ambulatory [facility] Start: 07-19-2023 End: 07-19-2023 Office outpatient new 45 minutes [facility] ALO-Bijan Work Phone: [facility] Comment on above: Lumbar neuritis (Michelle tyree Dx); Lumbar spondylosis; Disorder of sacrum; Lumbar radiculopathy, chronic Start: 07-13-2023 End: 07-13-2023 ambulatory MELONY KATIA Not Available Start: 06-29-2023 End: 06-30-2023 [facility] Start: 06-28-2023 End: 06-28-2023 ambulatory MELONY KATIA Not Available Start: 12-13-2022 End: 12-13-2022 ambulatory Hill Foreman Facility:[facility] Start: 12-13-2022 End: 12-13-2022 ambulatory DAKSHA Elizalde Work Phone: [facility] Work Phone: Start: 12-13-2022 End: 12-13-2022 Patient encounter procedure DAKSHA Elizalde Work Phone: [facility] [address] Work Phone: Start: 10-23-2022 Office outpatient visit 15 minutes Janay Elizalde [facility] Start: 10-23-2022 End: 10-23-2022 ambulatory Janay Clark Elizalde [employer] Other Start: 10-23-2022 End: 10-23-2022 Patient encounter procedure [facility] Janay Elizalde Work Phone: [facility] Work Phone: Start: 01-14-2022 End: 01-15-2022 ambulatory PHARMACY TECHNICIAN ASSISTANT MELONY MONTALVO Facility:[facility] Start: 12-09-2021 End: 12-09-2021 ambulatory Faustina Willis Other [employer] Other Start: 12-09-2021 Office outpatient ne w 20 minutes Faustina Willis [facility] Start: 09-02-2021 ambulatory Noa JM Facilit y:[facility] Start: 03-11-2021 End: 03-12-[address] MACI SALCIDO Facility:[facility] Procedures Date Procedure Procedure Detail Performing Clinician Start: 04-18-2024 [facility] Laura Valadez DO Work Phone: Start: 10-16-2023 Mammography Shaquille Valadez DO Work Phone: Start: 12-13-2022 Plain X-ray of bilat eral hands DAKSHA Elizalde Work Phone: Start: 10-23-2022 Radiologic examinati on of knee DAKSHA Elizalde Work Phone: Start: 05-06-2021 Colonoscopy Christiano Verh off PA-C Work Phone: Plan of Treatment Date Care Activity Detail Author Start: 05-06-2031 Screening for malign ant neoplasm of colon [facility] [employer] [facility] Start: 01-22-2031 RSV vaccine (adult) (1 - 1-dose 75+ series) RSV vaccine (adult) (1 - 1-dose 75+ series) [facility] Start: 11-27-2024 Medicare Annual Well ness (AWV) Medicare Annual Wellness (AWV) [facility] Start: 10-15-2024 Screening for malign ant neoplasm of breast Mammogram [facility] Start: 08-29-2024 Tobacco Screening Tobacco Screening [facility] Start: 08-29-2024 End: 08-29-2024 Patient encounter procedure 08/29/2024 9:40 AM EST Office Visit [facility] [address] [place] [address] Melony Montalvo, HELLEN [address] [place] [address] [place] [phone] [facility] Start: 07-19-2024 Adult BMI Screening Adult BMI Screen ing [facility] Start: 07-19-2024 Tobacco Screening Tobacco Screening [facility] Start: 05-29-2024 End: 05-29-2024 Patient encounter procedure 05/29/2024 11:20 AM EST Office Visit [facility] [address] [place] [phone] Fallon Varner NP [address] [place] [address] [facility] Start: 05-29-2024 End: 05-29-2024 Patient encounter procedure 05/29/2024 9:40 AM EST Office [facility] [address] [place] [phone] Melony Montalvo, HELLEN [address] [place] [address] [facility] Start: 04-18-2024 End: 04-18-2025 Creatinine [Mass/volume] in Serum or Plasma Creatinine, Serum Lab Routine Memory loss Long-term use of high-risk medication Expected: 04/18/2024 (Approximate), Expires: 04/18/2025 [facility] Work Phone: Comment on above: Expected: 04/18/2024 (Approximate), Expires: 04/18/2025 Start: 04-16-2024 End: 04-16-2024 Patient encounter procedure [facility] Comment on above: Memory loss Start: [...] procedure 04/04/2024 12:00 PM EDT Office Visit [facility] [address] [place] [phone] Sabra Valadez DO [address] [place] [address] Arrived [facility] Comment on above: Arrived Start: 02-25-2024 COVID-19 Vaccine ( season) COVID-19 Vaccine () [facility] Start: 02-25-2024 Influenza vaccination Influenza Vacc ine (#1) [facility] Start: 10-04-2023 End: 10-04-2023 Patient encounter procedure 10/04/2023 8:30 AM EDT Office Visit [facility] [address] [place] [phone] Christiano Quintana, PAAlexisC [address] [place] [address] [facility] Start: 07-19-2023 End: 07-19-2024 MR Lumbar spine WO contrast MR lumbar spine without contrast Imaging Routine Lumbar radiculopathy, chronic Expected: 07/19/2023, Expires: 07/19/2024 [facility] NELSY Work Phone: Comment on above: Expected: 07/19/2023 , Expires: 07/19/2024 Start: 02-24-2023 COVID-19 Vaccine ( season) COVID-19 Vaccine ( season) [facility] Start: 12-13-2022 [facility] Start: 08-19-2021 DTaP,Tdap and Td Vaccines (2 - Td or Tdap) DTaP,Tdap and Td Vaccines (2 - Td or Tdap) [facility] Start: 01-22-2021 Fall Risk Screening Fall Risk Screen ing [facility] Start: 01-22-2021 Pneumococcal vaccination Pneum ococcal Vaccine(s) (65+ yrs) (1 of 1 - PCV) [facility] Start: 01-22-2021 Screening for osteoporosis Bone Densitometry [facility] Start: 2016 Hepatitis B (HBV) Vaccine (optional start 60+ years) Hepatitis B (HBV) Vaccine (optional start 60+ years) [facility] Start: 01-22-2006 Administration of varicella zoster vaccine Zoster (Shingles) Vaccine (1 of 2) [facility] Start: 01-22-2006 Shingles (RZV) Vacci ne (1 of 2) Shingles (RZV) Vaccine (1 of 2) [facility] Start: 01-22-2001 Lipid panel Cholesterol [facility] Start: 01-22-2001 Screening for malign ant neoplasm of colon [facility] Start: 1996 Screening for malign ant neoplasm of breast Mammography [facility] Start: 01-22-1975 Hepatitis A (HAV) Vaccine (optional start 19+ years) Hepatitis A (HAV) Vaccine (optional start 19+ years) [facility] Start: 01-22-1975 Tetanus vaccination Tetanus (T d or Tdap) Booster [facility] Start: 01-22-1974 Adult BMI Follow Up Plan Adult BMI Follow Up Plan [facility] Start: 01-22-1974 Hepatitis C screening Hepatitis C An tibody [facility] Start: 01-22-1974 Tdap Booster Tdap Booster [facility] Start: 1968 Depression Screening Depression Scre ening [facility] Start: 1956 Medicare Annual Well ness Visit Medicare Annual Wellness Visit [facility] Start: 1955 Screening for malign ant neoplasm of colon [facility] Thyrotropin [Units/volume] in Serum or Plasma TSH Lab Routine Cognitive impairment Ordered: 05/29/2024 [facility] Work Phone: Comment on above: Ordered: 05/29/2024 Immunizations Immunization Date Immunization Notes Care Provider Fa [facility] 04-12-2024 influenza, high dose seasonal, preservative-free Melony Montalvo TUBING TESTER Work Phone: [facility] 04-12-2024 influenza virus vaccine, unspecified formulation Elliot [...] Center Payers Date Payer Category Payer Self-pay [id number] 2021 Medicare (Managed Care) 1.2. [id number] 2021 Unknown [id number] 2020 Unknown [id number] 2.16.840 .[id number] 1959 Self-pay [id number] 1959 Unknown [id number] 1956 Unknown [id number] 2.16.84 0.1.637272.3.579.2.593 1956 Unknown [id number] 2.16.84 0.1.214496.3.579.2.593 1956 Unknown [id number] 2.16.84 0.1.658631.3.579.2.593 1956 Unknown [id number] 2.16.8 40.1.234056.3.579.2.1286 1956 Unknown [id number] 2.16.8 40.1.871311.3.579.2.6 1956 Unknown [id number] 2.16.8 40.1.857077.3.579.2.1286 1956 Unknown [id number] 2.16.8 40.1.149091.3.579.2.128 1956 Unknown [id number] 2.16.8 40.1.046015.3.579.2.1286 1956 Unknown [id number] 2.16.8 40.1.457551.3.579.2.1285 1956 Unknown [id number] 2.16.8 40.1.863958.3.579.2.1286 1956 Unknown [id number] 2.16.8 40.1.486130.3.579.2.128 1956 Unknown [id number] 2.16.8 40.1.825388.3.579.2.1286 1956 Unknown [id number] 2.16.84 0.1.323536.3.579.2.1286 1956 Unknown [id number] 2.16.84 0.1.857533.3.579.2.1259 1956 Unknown [id number] 2.16.84 0.1.871263.3.579.2.125 1956 Unknown [id number] 2.16.84 0.1.605424.3.579.2.1258 1956 Unknown [id number] 2.16.84 0.1.598961.3.579.2.1258 1956 Unknown [id number] 2.16.84 0.1.100032.3.579.2.9 1956 Unknown [id number] 2.16.84 0.1.380446.3.579.2.1259 1956 Unknown [id number] 2.16.84 0.1.871696.3.579.2.1258 1956 Unknown [id number] 2.16.840 .1.254528.3.579.2.1259 Unknown [id number] 2.16.8 40.1.514089.3.579.2.531 Unknown [id number] 2.16.8 40.1.276696.3.579.2.531 Social History Date Type Detail Facility Unknown if ever smoked [employer] Other Start: 07-19-2023 End: 09-21-2023 Sex Assigned At [employer] Other Start: 1955 Sex Assigned At Female F [facility] Start: 06-28-2023 End: 07-19-2023 Tobacco smoking status NHIS Never smoked tobacco [facility] Start: 06-28-2023 End: 07-19-2023 Tobacco use and exposure Smokeless tobacco non-user [facility] Start: 07-19-2023 End: 08-30-2023 Alcohol intake Current non-drinker of alcohol (finding) [facility] Start: 07-19-2023 End: 09-21-2023 History of Social function [facility] Childcare Unknown [facility] Start: 04-26-2021 Gender identity Identifies as female gender (finding) [facility] Start: 03-30-2024 End: 05-29-2024 Alcoholic beverage intake Lifetime non-drinker (finding) [facility] Do you belong to any clubs or organizations such as yazidi groups, unions, fraternal or athletic groups, or [...] at Not on file [facility] Tobacco smoking stat [facility] Tobacco smoking consumption unknown [facility] Start: 05-30-2024 Sex Female (finding) Kassandra nogueira NEGATED: Highlighted rowStart: NINF History of tobacco use Passive smoker [facility] Medical Equipment Procedure Code Equipment Code Equipment Origin al Text Equipment Identifier Dates Lens Mx60 20.5 - [id number] - [id number] Start: 07-10-2017 [employer] [id number] Start: 06-12-2017 Carmella medina Regenasorb [id number] Start: 05-12-2021 Clinical Notes 12-09-2021 to 05-29-2024 Melony Montalvo NP - 05/29/2024 10:21 AM BELINDA CAMPBELL - 05/29/2024 9:40 AM Anival Montalvo NP - 05/29/2024 9:40 AM Anival Montalvo NP - 05/29/2024 6:53 AM ESTPatient Instructions Note Date & Type Note Facility 05-29-2024 History of Presen t illness Narrative Associated Problem(s): Bilateral hearing loss No dizziness/fullness/tinnitis noted Will refer for audiology appt Fu in 2 months Left ear she is having trouble hearing in. Images from the original note were not included. Emily Aguirre is a 69 y.o. female presents with chief complaint of Hearing Problem (Left ear) HPI: Since last visit was referred to Neurology: saw dr valadez, had MRI normal, going to have neuropscyh testing and follow up with him and possible meds pending neuropsych eval, could not get done d/t her speaking/understanding mostly [place]uv[place] GERD sxs: takes PPI prn more so when eats spicy foods Hearing Problem This is a new problem. The current episode started more than 1 month ago. The problem occurs daily. The problem has been unchanged. Pertinent negatives include no abdominal pain, arthralgias, chest pain, chills, congestion, coughing, fatigue, fever, headaches, joint swelling, myalgias, nausea, numbness, rash, sore throat, vertigo or vomiting. Nothing aggravates the symptoms. She has tried nothing for the symptoms. SUBJECTIVE: MEDICATIONS: Current Outpatient Medications Medication Instructions Calcium Carb-Cholecalciferol 500-10 MG-MCG tablet 1 tablet, Oral, 2 times daily cetirizine (ZYRTEC) 10 mg, Oral, Daily meloxicam (MOBIC) 15 mg, Oral, Daily omeprazole (PRILOSEC) 40 mg, Oral, Daily before breakfast, Do not crush or chew. zoledronic acid (RECLAST) 5 mg, Intravenous, Once, Once a year ALLERGIES: Allergies Allergen Reactions Penicillins Swelling REVIEW OF SYMPTOMS: Review of Systems Constitutional: Negative for appetite change, chills, fatigue and fever. HENT: Positive for hearing loss. Negative for congestion, ear pain and sore throat. Eyes: Negative for pain, discharge, redness and visual disturbance. Respiratory: Negative for cough, shortness of breath and wheezing. Cardiovascular: Negative for chest pain, palpitations and leg swelling. Gastrointestinal: Negative for abdominal pain, blood in stool, constipation, diarrhea, nausea and vomiting. Genitourinary: Negative for difficulty urinating, dysuria and frequency. Musculoskeletal: Negative for arthralgias, back pain, joint swelling and myalgias. Skin: Negative for rash and wound. Neurological: Negative for dizziness, vertigo, tremors, seizures, syncope, numbness and headaches. Memory impairment Psychiatric/Behavioral: Negative for behavioral problems, self-injury and suicidal ideas. The patient is not nervous/anxious. Hematological: Does not bruise/bleed easily. Endocrine: Negative for polydipsia, polyphagia and polyuria. Allergic/Immunologic: Negative for environmental allergies and food allergies. PAST MEDICAL HISTORY Past Medical History: Diagnosis Date Abnormal mammogram [...] ROTATOR CUFF REPAIR Right 05/12/2021 Dr Ferguson family history includes Cancer in her sibling; Heart disease in her father; Hypertension in her mother; Stroke in her father. OBJECTIVE: Visit Vitals BP 128/80 (BP Location: Left arm, Patient Position: Sitting, BP Cuff Size: Adult long) Pulse 74 Temp 98.3 F (Temporal) Resp 19 Ht 5' 2 Wt 180 lb 6.4 oz SpO2 99% BMI 33.00 kg/m Smoking Status Never BSA 1.89 m Physical Exam Vitals and nursing note reviewed. Constitutional: General: She is not in acute distress. Appearance: Normal appearance. HENT: Head: Normocephalic and atraumatic. Right Ear: Tympanic membrane, ear canal and external ear normal. Left Ear: Tympanic membrane, ear canal and external ear normal. Nose: Nose normal. No congestion or rhinorrhea. Mouth/Throat: Mouth: Mucous membranes are moist. Pharynx: No oropharyngeal exudate or posterior oropharyngeal erythema. Eyes: Extraocular Movements: Extraocular movements intact. Conjunctiva/sclera: Conjunctivae normal. Neck: Vascular: No carotid bruit. Cardiovascular: Rate and Rhythm: Normal rate and regular rhythm. Pulses: Normal pulses. Heart sounds: Normal heart sounds. Pulmonary: Effort: Pulmonary effort is normal. Breath sounds: Normal breath sounds. Musculoskeletal: General: Normal range of motion. Cervical back: Normal range of motion and neck supple. Lymphadenopathy: Cervical: No cervical adenopathy. Skin: General: Skin is warm and dry. Capillary Refill: Capillary refill takes 2 to 3 seconds. Findings: No rash. Neurological: General: No focal deficit present. Mental Status: She is alert and oriented to person, place, and time. Psychiatric: Mood and Affect: Mood normal. Behavior: Behavior normal. Thought Content: Thought content normal. Judgment: Judgment normal. ASSESSMENT AND PLAN: No follow-ups on file. Problem List Items Addressed This Visit Obesity (BMI 30.0-34.9) Discussed with patient their BMI (actual, verses recommended). We have also discussed lifestyle modifications: attempts to perform physical activity as chronic conditions allow, also to monitor dietary intake: increasing protein/fruits/veggies and lowering carb intake (unless contraindicated). Limit sodas, juices, and sugary drinks. Essential hypertension, benign (CMS/HCC) - Primary Please check blood pressure daily and record DASH diet Limit caffeine Take medication as directed Contact office if chest pain, pressure, dizziness, shortness of breath, swelling legs Recommend slow position changes No current meds Gastroesophageal reflux disease without esophagitis Recommendations: freq small meals, nothing to eat or drink at least 2 hours prior to bed, limit caffeine, alcohol, as well as spicy foods Meds to limit or avoid if possible: NSAIDS Elevate HOB if possible Cont with Omeprazole Atherosclerosis of aorta (CMS/HCC) Noted on CT scan Memory impairment of gradual onset I have reviewed notes from Neurology Reviewed MRI Is going to have Neuropsych testing, could not complete as they could not do it in [place] Fu with neurology today Bilateral hearing loss No dizziness/fullness/tinnitis noted Will refer for audiology appt Fu in 2 months Relevant Orders Ambulatory referral to Audiology Associated Problem(s): Memory impairment of gradual onset I have reviewed notes from Neurology Reviewed MRI Is going to have Neuropsych testing, could not complete as they could not do it in [place] Fu with neurology today Associated Problem(s): Obesity (BMI 30.0-34.9) Discussed with patient their BMI (actual, verses recommended). We have also discussed lifestyle modifications: attempts to perform physical activity as chronic conditions allow, also to monitor dietary intake: increasing protein/fruits/veggies and lowering carb intake (unless contraindicated). Limit sodas, juices, and sugary drinks. Associated Problem(s): Gastroesophageal reflux disease without esophagitis Recommendations: freq small meals, nothing to eat or drink at least 2 hours prior to bed, limit caffeine, alcohol, as well as spicy foods Meds to limit or avoid if possible: NSAIDS Elevate HOB if possible Cont with Omeprazole Associated Problem(s): Atherosclerosis of aorta (CMS/HCC) Noted on CT scan Associated Problem(s): Essential hypertension, benign (CMS/HCC) Please check blood pressure daily and record DASH diet Limit caffeine Take medication as directed Contact office if chest pain, pressure, dizziness, shortness of breath, swelling legs Recommend slow position changes No current meds documented in this encounter [facility] 05-29-2024 Instructions Melony Montalvo NP - 05/29/2024 9:40 AM EST Keep appointment with Neurology Will refer to Tableau Report Developer with [facility], in [place] office [address] [place], they should call you to set up appt documented in this encounter [facility] 04-04-2024 History of Presen t illness Narrative [...] where she was in her town of [place] and she does not know where she [...] Patient denies any issues with ADL's. MOCA 20/30 Review of Systems Constitutional: Negative for appetite [...] Awake, alert to person, place and time. 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 LUE Strength deltoid , biceps , triceps , wrist extensors , wrist flexor , beef cattle farmer strength 5/5. RLE Strength illopsoas, quadriceps, tibialis [...] reflex 2+ . Knowles's sign negative. Coordination: Ivekqw-nz-arsb testing and rapid alternating movements are normal Gait: Normal Review and summary of old records: [place] cognitive assessment advanced Neurology on 04/04/2024 was 20 /30 Vitamin B12 level on 10/11/2023: 325 normal Assessment/Plan Diagnoses and all orders for this visit: Memory loss It is my impression that the patient has memory impairment. [place] cognitive assessment was 20/30. Vitamin B12 level is normal. Patient has a family history of Alzheimer's disease in her mother. This is creating some stress for her. Certainly with this abnormality found on [place] cognitive assessment we need to pursue further evaluation of potentially alternative causes of memory impairment that can be life-threatening or debilitating not clinically identified and treated. Plan: MRI of the brain with and without contrast Thyroid stimulating hormone Neuropsych testing We may consider medication such as Aricept or Namenda depending clinical course and results above The patient primarily speaks Uruguayan. She was here with her daughter, Shira, [...] and signature. done documented in this encounter [facility] 09-05-2023 Telephone encounter Note Last office visit PT was ordered for right hand. Call received from physical therapist requesting that the order be changed to OT. Order for OT has been pended for review and signature. [facility] 09-05-2023 Telephone encounter Note done [facility] 08-30-2023 History of Presen t illness Narrative [facility] [address] [place] [address] Patient: Emily Aguirre Sex: female : 1955 Age: 68 y.o. PCP: MELONY MONTALVO APRN-CHAZ 08/30/2023 Emily Aguirre is here for a(n) follow up after completing a L-spine MRI on 08-15-2023. Patient also complains of pain in her right hand. Today's office visit was conducted with house repairer Shay #[id number]. Chief Complaint Patient presents with Back Pain [...] 05/12/2021 Performed by Myke Ferguson DO at [facility] ARTHROSCOPY SHOULDER Right 05/12/2021 Performed by Myke Ferguson DO at [facility] CHOLECYSTECTOMY COLONOSCOPY COLONOSCOPY N/A 05/06/2021 Performed by Wally Hu DO at [facility] ESOPHAGOGASTRODUODENOSCOPY N/A 05/06/2021 Performed by Wally Hu DO at [facility] HYSTERECTOMY 1991 OTHER SURGICAL HISTORY bladder lift PHACO KELMAN I IMPLANT INTRAOCULAR LENS Left 07/10/2017 Performed by Jose Damian MD at [facility] PHACO KELMAN I IMPLANT INTRAOCULAR LENS Right 06/12/2017 Performed by oJse Damian MD at [facility] Allergies Allergen Reactions Penicillins Throat swelling Family [...] PA-C by Melony Russo CNA. Provider Statement: CHRISTIANO Ross PA-C, personally performed the services described in the documentation, as scribed by Melony Russo CNA in my presence, and it is both accurate and complete. Melony Russo CNA 08/30/23 1039 Melony Russo CNA 08/30/23 1114 Christiano Quintana PA-C 08/30/23 1120 documented in this encounter [facility] [employer] [facility] 07-19-2023 History of Presen t illness Narrative [facility] [address] [place] [address] Patient: Emily Aguirre Sex: female : 1955 Age: 68 y.o. PCP: MELONY MONTALVO, [facility] TECHNICIAN ASSISTANT 07/19/2023 Emily Aguirre is here for a(n) [...] 05/12/2021 Performed by Myke Ferguson DO at [facility] ARTHROSCOPY SHOULDER Right 05/12/2021 Performed by Myke Ferguson DO at [facility] CHOLECYSTECTOMY COLONOSCOPY COLONOSCOPY N/A 05/06/2021 Performed by Wally Hu DO at [facility] ESOPHAGOGASTRODUODENOSCOPY N/A 05/06/2021 Performed by Wally Hu DO at [facility] HYSTERECTOMY 1990 OTHER SURGICAL HISTORY bladder lift PHACO KELMAN I IMPLANT INTRAOCULAR LENS Left 07/10/2017 Performed by Jose Damian MD at [facility] PHACO KELMAN I IMPLANT INTRAOCULAR LENS Right 06/12/2017 Performed by Jose Damian MD at [facility] Allergies Allergen Reactions Penicillins Throat swelling Family [...] making: Obesity Due to language barrier, an food and drink factory workers was present via tele-communication during the history-taking and subsequent discussion (and for part of the physical exam) with this patient. OARRS: Reviewed. Scribe Statement: Scribed for and in the presence of CHRISTIANO QUINTANA PA-C by Melony Russo CNA. Provider Statement: ICHRISTIANO PA-C, personally performed the services described in the documentation, as scribed by Melony Russo CNA in my presence, and it is both accurate and complete. Melony Russo CNA 07/19/23 1244 Christiano Quintana PA-C 07/19/23 1256 documented in this encounter [facility] 10-23-2022 Evaluation note Encounter Date Diagnosis Assessment [...] plan. Sep, Other Contusion material was printed [employer] Other 06-16-2022 Evaluation note* Encounter Date Diagnosis [...] verbalized understanding and agreement with tx plan. [employer] Other Evaluation noteNo assessment information available [facility] Work Phone: Evaluation note* Diagnosis Lumbar neuritis- Primary Lumbar spondylosis Lumbosacral spondylosis without myelopathy Disorder of sacrum Disorders of sacrum Lumbar radiculopathy, chronic [facility] Diagnosis Lumbar spondylosis- Primary Lumbosacral spondylosis without myelopathy Spinal stenosis of lumbar region with neurogenic claudication Pain of right middle finger Pain of right middle finger [facility] Diagnosis Pain of right middle finger- Primary [facility] Diagnosis Memory loss- Primary Long-term use of high-risk medication [facility] Diagnosis Lumbar back pain- Primary Lumbago Other headache syndrome Elevated blood pressure reading Elevated blood pressure reading without diagnosis of hypertension Obesity (BMI 30.0-34.9) Elevated blood pressure reading- Primary Elevated blood pressure reading without diagnosis of hypertension Obesity (BMI 30.0-34.9) Lumbar back pain Lumbago Right ear pain- Primary Unspecified otalgia Osteoporosis, post-menopausal (CMS/HCC) Senile osteoporosis Encounter for screening mammogram for malignant neoplasm of breast Essential hypertension, benign (CMS/HCC) Essential hypertension, benign Gastroesophageal reflux disease without esophagitis Esophageal reflux Lower extremity edema Edema Vitamin B12 deficiency (non anemic) Other B-complex deficiencies Iron deficiency anemia, unspecified iron deficiency anemia type Mixed hyperlipidemia (CMS/HCC) Mixed hyperlipidemia Candidiasis, intertrigo Candidiasis of skin and nails Obesity (BMI 30.0-34.9) Encounter for subsequent annual wellness visit (AWV) in Medicare patient- Primary Gastroesophageal reflux disease without esophagitis Esophageal reflux Obesity (BMI 30.0-34.9) Family history of breast cancer Family history of malignant neoplasm of breast Routine general medical examination at health care facility Routine general medical examination at a health care facility Contact dermatitis due to plant- Primary Atherosclerosis of aorta (CMS/HCC) Atherosclerosis of aorta Memory impairment of gradual onset Obesity (BMI 30.0-34.9) Memory loss- Primary Long-term use of high-risk medication documented in this encounter [facility]* Diagnosis Lumbar back pain- Primary Lumbago Other headache syndrome Elevated blood pressure reading Elevated blood pressure reading without diagnosis of hypertension Obesity (BMI 30.0-34.9) Elevated blood pressure reading- Primary Elevated blood pressure reading without diagnosis of hypertension Obesity (BMI 30.0-34.9) Lumbar back pain Lumbago Right ear pain- Primary Unspecified otalgia Osteoporosis, post-menopausal (CMS/HCC) Senile osteoporosis Encounter for screening mammogram for malignant neoplasm of breast Essential hypertension, benign (CMS/HCC) Essential hypertension, benign Gastroesophageal reflux disease without esophagitis Esophageal reflux Lower extremity edema Edema Vitamin B12 deficiency (non anemic) Other B-complex deficiencies Iron deficiency anemia, unspecified iron deficiency anemia type Mixed hyperlipidemia (CMS/HCC) Mixed hyperlipidemia Candidiasis, intertrigo Candidiasis of skin and nails Obesity (BMI 30.0-34.9) Encounter for subsequent annual wellness visit (AWV) in Medicare patient- Primary Gastroesophageal reflux disease without esophagitis Esophageal reflux Obesity (BMI 30.0-34.9) Family history of breast cancer Family history of malignant neoplasm of breast Routine general medical examination at health care facility Routine general medical examination at a health care facility Contact dermatitis due to plant- Primary Atherosclerosis of aorta (CMS/HCC) Atherosclerosis of aorta Memory impairment of gradual onset Obesity (BMI 30.0-34.9) Bilateral hearing loss, unspecified hearing loss type- Primary Essential hypertension, benign (CMS/HCC) Essential hypertension, benign Atherosclerosis of aorta (CMS/HCC) Atherosclerosis of aorta Gastroesophageal reflux disease without esophagitis Esophageal reflux Obesity (BMI 30.0-34.9) Memory impairment of gradual onset [facility] Diagnosis Lumbar back pain- Primary Lumbago Other headache syndrome Elevated blood pressure reading Elevated blood pressure reading without diagnosis of hypertension Obesity (BMI 30.0-34.9) Elevated blood pressure reading- Primary Elevated blood pressure reading without diagnosis of hypertension Obesity (BMI 30.0-34.9) Lumbar back pain Lumbago Right ear pain- Primary Unspecified otalgia Osteoporosis, post-menopausal ([facility]) Senile osteoporosis Encounter for screening mammogram for malignant neoplasm of breast Essential hypertension, benign (CMS/HCC) Essential hypertension, benign Gastroesophageal reflux disease without esophagitis Esophageal reflux Lower extremity edema Edema Vitamin B12 deficiency (non anemic) Other B-complex deficiencies Iron deficiency anemia, unspecified iron deficiency anemia type Mixed hyperlipidemia (CMS/HCC) Mixed hyperlipidemia Candidiasis, intertrigo Candidiasis of skin and nails Obesity (BMI 30.0-34.9) Encounter for subsequent annual wellness visit (AWV) in Medicare patient- Primary Gastroesophageal reflux disease without esophagitis Esophageal reflux Obesity (BMI 30.0-34.9) Family history of breast cancer Family history of malignant neoplasm of breast Routine general medical examination at health care facility Routine general medical examination at a health care facility Contact dermatitis due to plant- Primary Atherosclerosis of aorta (CMS/HCC) Atherosclerosis of aorta Memory impairment of gradual onset Obesity (BMI 30.0-34.9) Bilateral hearing loss, unspecified hearing loss type- Primary Essential hypertension, benign (CMS/HCC) Essential hypertension, benign Atherosclerosis of aorta (CMS/HCC) Atherosclerosis of aorta Gastroesophageal reflux disease without esophagitis Esophageal reflux Obesity (BMI 30.0-34.9) Memory impairment of gradual onset Cognitive impairment- Primary Unspecified persistent mental disorders due to conditions classified elsewhere [facility] Diagnosis Cognitive impairment- Primary Unspecified persistent mental disorders due to conditions classified elsewhere [facility] - [facility]* Type Description Date Medical History Arthritis Surgical History hysterectomy Surgical History gallbladder [employer] Other History general Narrative - Reported* Type Description Date Medical History Arthritis Surgical History hysterectomy Surgical History gallbladder Hospitalization History SEE ABOVE [employer] Other InstructionsNot on filedocumented in this encounter [facility] filedocumented in this encounter [facility] (narrative)* Consultation (Routine) - Pending Review Specialty Diagnoses / Procedures Referred By Wanda regan Referred To Contact Psychology Diagnoses Memory loss Procedures [place] OFFICE/OUTPATIENT [facility] 60 MINUTES Sabra Valadez DO [address] [address] Elliot Waldron, PhD [address] [place] [phone] Referral ID Status Reason Start Date Expiration Date Visits Requested Visits Authorized [id number] Pending Review Specialty Services Required 10/01/2024 1 1 * Imaging (Routine) - Pending Review Specialty Diagnoses / Procedures Referred By Wanda regan Referred To Contact Radiology Diagnoses Memory loss Procedures MR brain w and wo contrast routine Sabra Valadez DO [address] [address] Referral ID Status Reason Start Date Expiration Date V isits Requested Visits Authorized [id number] Pending Review 04/04/2024 10/01/2024 1 1 [facility] Summary Purpose Family History No Family History Records FoundNo Family History Records FoundNo Family History Records FoundNo Family History Records FoundNo Family History Records Found Advance Directives No Advanced Directives Records Found Advance Directive Response Recorded Date/ Time Advance Directives No May 03, 2018 2:33pm Chief Complaint and Reason for Visit Chief Complaint [id number] Reason for Referral Specialty Diagnoses / Procedures Referred By Contact Referred To Contact Occupational Therapy / Rehabilitation Diagnoses Pain of right middle finger Jose Lblainearianne Christiano Barkley PA-C [address], [address] [place] [phone] [facility] [address] [place] [address] Referral ID Status Reason Start Date Expiration Date Visits Requested Visits Authorized [id number] Authorized Specialty Services Required 09/05/2023 09/04/2024 1 1 Specialty Diagnoses / Procedures Referred By Contac t Referred To Contact Rehabilitation Diagnoses Pain of right middle finger Lilian Christiano Barkley PA-C [address] [address] [facility] [address] [place] [phone] Referral ID Status Reason Start Date Expiration Date Visits Requested Visits Authorized [id number] Authorized Specialty Services Required 08/30/2023 08/29/2024 1 1 Specialty Diagnoses / Procedures Referred By Contac t Referred To Contact Diagnoses Lumbar spondylosis Spinal stenosis of lumbar region with neurogenic claudication Christiano Quintana PA-C [address] [address] Referral ID Status Reason Start Date Expiration Date V isits Requested Visits Authorized [id number] Pending Review 1 1 Specialty Diagnoses / Procedures Referred By Contac t Referred To Contact Radiology Diagnoses Lumbar radiculopathy, chronic Procedures MR lumbar spine without contrast Christiano Quintana PA-C [address], [address] [place] [id number] Referral ID Status Reason Start Date Expiration Date V isits Requested Visits Authorized [id number] Pending Review 07/19/2023 07/18/2024 1 1 Additional Source Comments INFORMATION SOURCE (unrecogn ized section and content) DATE CREATED AUTHOR 05/18/2020 Tung Buck [facility] DATE CREATED AUTHOR AUTHOR'S ORGANIZ ATION 01/19/2022 [facility] DATE CREATED AUTHOR AUTHOR'S ORGANIZ ATION 12/25/2022 [facility] DATE CREATED AUTHOR AUTHOR'S ORGANIZ ATION 10/26/2023 [facility] DATE CREATED AUTHOR AUTHOR'S ORGANIZ ATION 05/31/2024 [facility] dical Specialists EPIC REASON FOR VISIT (unrecogniz ed section and content) Reason Comments Back Pain Reason Comments Back Pain Reason Comments Hearing Problem Left ear Reason Comments Memory Loss Care Teams (unrecognized sec tion and content) Team Status: Inactive Member Role Status Dates Janay Elizalde APRN Attending Provider Active Team Status: Inactive Member Role Status Dates Hill Foreman MD Attending Provider Active Morgue Technician Relationship Specialty Start Date End Date Melony Montalvo APRN-[facility] [address] [place] [address] [place] [address] PCP - General Nurse Practitioner 08/28/21 Morgue Technician Relationship Specialty Start Date End Date Melony Montalvo APRN-[facility] [address] [place] [address] [place] [address] PCP - General Nurse Practitioner 08/28/21 Morgue Technician Relationship Specialty Start Date End Date Melony Montalvo APRN-[facility] [address] [place] [address] PCP - General Nurse Practitioner 08/28/21 Morgue Technician Relationship Specialty Start Date End Date Jovanny Mauricio MD [address] [place] [address] PCP - [employer] 07/27/21 Jovanny Mauricio MD [address] [place] [address] [place] [address] PCP - General Family Medicine 09/28/23 Melony Montalvo NP [address] [place] [address] [place] [address] Nurse Practitioner Family Medicine 09/28/23 Morgue Technician Relationship Specialty Start Date End Date Jovanny Mauricio MD [address] [place] [address] PCP - [facility] 07/27/21 Jovanny Mauricio MD [address] [place] [address] [place] [address] PCP - General Family Medicine 09/28/23 Melony Montalvo NP [address] [place] [address] [place] [address] Nurse Practitioner Family Medicine 09/28/23 Morgue Technician Relationship Specialty Start Date End Date Jovanny Mauricio MD [address] [place] [address] [place] [address] PCP - [facility] 07/27/21 Jovanny Mauricio MD [address] [place] [address] [place] [address] PCP - General Family Medicine 09/28/23 Melony Montalvo NP [address] [place] [address] [place] [address] Nurse Practitioner Family Medicine 09/28/23 Morgue Technician Relationship Specialty Start Date End Date Jovanny Mauricio MD [address] [place] [address] [place] [address] PCP - [facility] 07/27/21 Jovanny Mauricio MD [address] [place] [address] [place] [address] PCP - General Family Medicine 09/28/23 Melony Montalvo NP [address] [place] [address] [place] [address] Nurse Practitioner Family Medicine 09/28/23 Morgue Technician Relationship Specialty Start Date End Date Jovanny Mauricio MD [address] [place] [address] [place] [address] PCP - [facility] 07/27/21 Jovanny Mauricio MD [address] [place] [address] [place] [address] PCP - General Family Medicine 09/28/23 Melony Montalvo NP [address] [place] [address] [place] [address] Nurse Practitioner Family Medicine 09/28/23 Morgue Technician Relationship Specialty Start Date End Date Jovanny Mauricio MD [address] [place] [address] [place] [address] PCP - [facility] 07/27/21 Jovanny Mauricio MD [address] [place] [address] PCP - General Family Medicine 09/28/23 Melony Montalvo NP [address] [place] [address] [place] [phone] Nurse Practitioner Family Medicine 09/28/23 Morgue Technician Relationship Specialty Start Date End Date Jovanny Mauricio MD [address] [place] [address] [place] [address] PCP - [facility] 07/27/21 Jovanny Mauricio MD [address] [place] [address] [place] [address] PCP - General Family Medicine 09/28/23 Melony Montalvo NP [address] [place] [address] [place] [address] Nurse Practitioner Family Medicine 09/28/23 Morgue Technician Relationship Specialty Start Date End Date Jovanny Mauricio MD [address] [place] [address] PCP - [facility] 07/27/21 Jovanny Mauricio MD [address] [place] [address] [place] [address] PCP - General Family Medicine 09/28/23 Melony Montalvo NP [address] [place] [phone] Nurse Practitioner Family Medicine 09/28/23 Goals (unrecognized section and content) Goals [...] BE BASED ON THE PRIMARY CLINICAL RECORDS. [facility]. provides no warranty or guarantee of the accuracy or completeness of information in this document.
[2024-06-10 12:21] LABS: Thyroid Stimulating Hormone 2.983 uIU/mL (0.358-3.740)
== END 2024-06-10 11:31 | disposition home or self-care (01) ==
LOC: LAB 11:31
PROVIDERS: PCP Nurse Practitioner; Visit Provider Nurse Practitioner Family
DX: R41.89 Other symptoms and signs involving cognitive functions and awareness (principal)
CPT/HCPCS: 36415; 84443

== ENCOUNTER 2025-01-16 07:31 | Outpatient (RCR) | payer OTHER, SELFPAY ==
[2025-01-16 08:39] LABS: Hematocrit 37.9 % (36.0-48.0); Hemoglobin 12.5 g/dL (12.0-16.0); Immature Granulocytes Abs Auto 0.02 10^3/uL (0.00-0.03); Immature Granulocytes Pct Auto 0.4 % (0.0-0.5); Lymphocytes Absolute Auto 2.3 10^3/uL (1.2-3.8); Mean Corpuscular HGB Conc 33.0 g/dL (29.9-35.2); Mean Corpuscular Hemoglobin 30.5 pg (26.7-34.0); Mean Corpuscular Volume 92.4 fL (81.0-99.0); Platelet Count 201 10^3/uL (150-450); Red Blood Count 4.10 10^6/uL (4.20-5.40); White Blood Count 5.5 10^3/uL (4.0-11.0)
[2025-01-16 08:43] VITALS: BP 131/78; PULSE 75; TEMP 36.6; O2SAT 95
[2025-01-16 08:51] LABS: Anion Gap 11.6; Blood Urea Nitrogen 11.0 mg/dL (7.0-18.0); Calcium 9.2 mg/dL (8.5-10.1); Carbon Dioxide 28.5 mmol/L (21.0-32.0); Chloride 107 mmol/L (98-107); Estimated GFR (African America >60 (>=60 mL/min/1.73m^2); Estimated GFR (Non-African Ame >60 (>=60 mL/min/1.73m^2); Glucose 102 mg/dL (74-106); Magnesium 1.9 mg/dL (1.8-2.4); Potassium 4.1 mmol/L (3.5-5.1); Sodium 143 mmol/L (136-145)
[2025-01-16] MEDS: ZOLEDRONIC ACID/MANNITOL-WATER 5 MG/100 ML BOTTLE 400 MG IV (09:13)
== END 2025-01-23 17:05 | disposition home or self-care (01) ==
LOC: LAB 07:31
PROVIDERS: PCP Nurse Practitioner; Visit Provider Nurse Practitioner
DX: Z51.81 Encounter for therapeutic drug level monitoring (principal); M81.0 Age-related osteoporosis without current pathological fracture; R25.2 Cramp and spasm; R53.83 Other fatigue
CPT/HCPCS: 36415; 80048; 83735; 85025; 96374; J3489